=== PATIENT | male | born 1935 | race Two or more races ===

== ENCOUNTER 2018-11-05 08:03 | Inpatient (IN) | payer OTHER, MEDICAID ==
[~2018-11-05] VITALS: Ht 167.6 cm; Wt 72.0 kg
[2018-11-05 08:12] VITALS: Ht 167.6 cm; Wt 72.0 kg
[2018-11-05] MEDS ORDERED: morphine 4 MG/ML VIAL IV STA (08:22)
[2018-11-05] MEDS ORDERED: ONDANSETRON 4 MG INJ IV STA (08:22)
[2018-11-05] MEDS ORDERED: METF500T9 ORAL (08:50)
[2018-11-05] MEDS ORDERED: BENA1TAB13 ORAL (08:50)
[2018-11-05] MEDS ORDERED: TAMS0.4C2 ORAL (08:50)
[2018-11-05] MEDS ORDERED: HYDROmorphONE 2 MG/ML SYG IV STA (09:23)
[2018-11-05] MEDS ORDERED: ACETAMINOPHEN 325 MG TAB PO PRN ×2 (10:30)
[2018-11-05] MEDS ORDERED: NACL 0.9% 3 ML SYG IV SCH (10:30)
[2018-11-05] MEDS ORDERED: ONDANSETRON 4 MG INJ IV PRN ×2 (10:30)
--- NOTE | 2018-11-05 12:08 | ERD ---
ER Documentation Chief Complaint Chief Complaint right ankle pain and swelling after trip and fall HPI Patient is an 83-year-old male with hypertension and diabetes who presents with right leg pain. He had a slip and fall at home this morning. He was brought in by ambulance. There is right leg pain, swelling, and deformity. He has had no treatment for pain as of yet. Upon review of old medical records this is the patient's third visit to the ER since 2007. His primary doctor is Dr. Thomas. ROS All systems reviewed and are negative except as per history of present illness. Medications Home Meds Reported Medications Metformin Hcl (Metformin Hcl ER) 500 Mg Tab.er.24h, 1 TAB ORAL DAILY 11/05/18 Tamsulosin Hcl* (Tamsulosin Hcl*) 0.4 Mg Cap.er.24h, 1 CAP ORAL DAILY 11/05/18 Benazepril-Hydrochlorothiazide (Benazepril-Hydrochlorothiazide) 20-12.5 Mg Tablet, 1 TAB ORAL DAILY 11/05/18 Allergies Allergies: Coded Allergies: Penicillins (Verified Allergy, Mild, RASH, 11/05/18) PMhx/Soc Medical and Surgical Hx: pt denies Surgical Hx History of Surgery: No Hx Neurological Disorder: No Hx Respiratory Disorders: No Hx Cardiac Disorders: Yes (htn) Hx Psychiatric Problems: No Hx Miscellaneous Medical Probl: Yes (DM, ENLARGED PROSTATE) Hx Alcohol Use: No Hx Substance Use: No Hx Tobacco Use: No Smoking Status: Never smoker FmHx Family History: No diabetes Physical Exam Vitals Vital Signs Date Temp Pulse Resp B/P (MAP) Pulse Ox O2 O2 Flow FiO2 Time Delivery Rate 11/05/18 78 16 141/78 96 Room Air 09:05 (99) 11/05/18 78 16 163/75 99 Room Air 08:40 (104) 11/05/18 98.4 94 18 194/89 98 08:12 (124) Physical Exam Const: No acute distress Head: Atraumatic Eyes: Normal Conjunctiva ENT: Normal External Ears, Nose and Mouth. Neck: Full range of motion. No meningismus. Resp: Clear to auscultation bilaterally Cardio: Regular rate and rhythm, no murmurs Abd: Soft, non tender, non distended. Normal bowel sounds Skin: No petechiae or rashes Back: No midline or flank tenderness Ext: Swelling and deformity to the right lower extremity at the mid tibia Neur: Awake and alert Psych: Normal Mood and Affect Result Diagram: 11/05/18 0834 11/05/18 0834 Results 24 hrs Laboratory Tests Test 11/05/18 08:34 White Blood Count 5.5 10^3/ul Red Blood Count 5.37 10^6/ul Hemoglobin 17.0 g/dl Hematocrit 49.4 % Mean Corpuscular Volume 92.0 fl Mean Corpuscular Hemoglobin 31.7 pg Mean Corpuscular Hemoglobin Concent 34.4 g/dl Red Cell Distribution Width 12.9 % Platelet Count 222 10^3/UL Mean Platelet Volume 10.0 fl Immature Granulocytes % 1.100 % Neutrophils % 75.7 % Lymphocytes % 15.9 % Monocytes % 5.1 % Eosinophils % 1.3 % Basophils % 0.9 % Nucleated Red Blood Cells % 0.0 /100WBC Immature Granulocytes # 0.060 10^3/ul Neutrophils # 4.2 10^3/ul Lymphocytes # 0.9 10^3/ul Monocytes # 0.3 10^3/ul Eosinophils # 0.1 10^3/ul Basophils # 0.1 10^3/ul Nucleated Red Blood Cells # 0.0 10^3/ul Prothrombin Time 13.6 Sec Prothrombin Time Ratio 1.1 INR International Normalized Ratio 1.03 Activated Partial Thromboplast Time 27.4 Sec Sodium Level 142 mmol/L Potassium Level 3.9 mmol/L Chloride Level 102 mmol/L Carbon Dioxide Level 30 mmol/L Anion Gap 10 Blood Urea Nitrogen 19 mg/dl Creatinine 0.76 mg/dl Est Glomerular Filtrat Rate mL/min mL/min Glucose Level 240 mg/dl Calcium Level 9.4 mg/dl Troponin I < 0.012 ng/ml Current Medications Medications Dose Sig/Sammie Start Time Status Last (Trade) Ordered Route PRN Stop Time Admin Dose Reason Admin Morphine 4 mg ONCE STAT 11/05/18 DC 11/05/18 Sulfate IV 08:22 08:49 (morphine) 11/05/18 08:25 Ondansetron 4 mg ONCE STAT 11/05/18 DC 11/05/18 HCl (Zofran IV 08:22 08:49 Inj) 11/05/18 08:25 1 mg ONCE STAT 11/05/18 DC 11/05/18 Hydromorphone IV 09:23 10:27 HCl 11/05/18 09:24 (Dilaudid) Procedures/MDM X-ray of the right tibia/fibula shows comminuted fracture of the tibia and fibula per radiology. Chest x-ray read by radiology. EKG read by me: Rate/Rhythm: Regular rate and rhythm at a normal rate Intervals: Normal Impression: No evidence of ischemia or arrhythmia Splint Note Type: Posterior long leg Location: Right lower extremity Indication: Comminuted tibia and fibula fracture Splint Assessment: Neurovascularly intact post splint placement with good fit. Patient is an 83-year-old male with hypertension and diabetes who presents with right leg pain. He was found to have a comminuted tibia and fibula fracture of the right lower extremity. The patient was placed in a splint. He will need to go to the operating room with Dr. Rhodes who I have spoken with. This patient will be admitted to the medical surgical floor under the care of the panel team. Departure Diagnosis: Primary Impression: Fibula fracture Encounter type: initial encounter Fibula location: proximal Fracture type: closed Fracture morphology: other fracture Laterality: right Qualified Codes: S82.831A - Other fracture of upper and lower end of right fibula, initial encounter for closed fracture Additional Impression: Tibia fracture Encounter type: initial encounter Tibia location: shaft Fracture type: closed Fracture morphology: other fracture Laterality: right Qualified Codes: S82.291A - Other fracture of shaft of right tibia, initial encounter for closed fracture Condition: KEEGAN Vivar MD Nov 05, 2018 12:08
[2018-11-05] MEDS: morphine 2 MG INJ IV PRN ×3 (12:12→21:40)
[2018-11-05] MEDS: DEXTROSE 5%-0.45% NACL 1,000 ML IV SCH (12:14)
[2018-11-05] MEDS ORDERED: hydrALAzine 20 MG INJ IV PRN (13:00)
[2018-11-05 13:11] VITALS: BP 123/68; PULSE 81; RESP 18
[2018-11-05] MEDS ORDERED: GLUCOSE GEL 15 GRAM TUBE BUCCAL PRN (13:30)
[2018-11-05] MEDS ORDERED: GLUCAGON 1 MG INJ IM PRN (13:30)
[2018-11-05] MEDS ORDERED: DEXTROSE 50% 50 ML SYRINGE IV PRN ×2 (13:30)
[2018-11-05] MEDS ORDERED: GLUCOSE GEL 15 GRAM TUBE PO PRN ×2 (13:30)
--- NOTE | 2018-11-05 13:51 | HP ---
Date/Time of Note Date/Time of Note DATE: 11/05/18 TIME: 13:50 Assessment/Plan VTE Prophylaxis Pharmacological prophylaxis: other Lines/Catheters IV Catheter Type (from Nrsg): Peripheral IV Assessment/Plan Hospital Course Patient is a male with a past medical history significant for BPH, hypertension, mild diabetes who presents to [facility] for right leg pain. Patient was diagnosed with right tib-fib fracture. Patient states that he tripped and fell over an object. Patient has no ambulatory issues, does not use a cane or walker normally. Patient feels well otherwise and has no chest pain, no shortness of breath, denies nausea, vomiting, headache, respiratory issues, left leg pain. Objective Physical exam General: Patient is laying in bed and answers questions appropriately Mentation: Patient is alert and oriented 4, Head: Normocephalic atraumatic Eyes: EOMI, pupils reactive to light Neck: Supple, nontender, midline Respiratory: Clear to auscultation bilaterally Cardiovascular: regular rate, no obvious murmurs Gastrointestinal: non-tender to palpation, bowel sounds heard. Neurological: Moves all extremities spontaneously Skin: R foot bandaged/splinted, CDI Assessment and plan Right tib-fib fracture -Orthopedic surgery consulted, Dr. Rhodes to see patient -Cardiology consulted for preop clearance, Dr. Nesbitt -N.p.o. for now -IV fluids while n.p.o. Hypertension -Treat as needed, resume home meds when able to tolerate p.o. BPH -Monitor for now, continue Flomax when able Diabetes mellitus -Insulin sliding scale for now Disposition -Await orthopedic surgery recommendations, possible surgical intervention. Result Diagram: 11/05/18 0834 11/05/18 0834 Results 24hrs Laboratory Tests Test 11/05/18 08:34 White Blood Count 5.5 Red Blood Count 5.37 Hemoglobin 17.0 Hematocrit 49.4 Mean Corpuscular Volume 92.0 Mean Corpuscular Hemoglobin 31.7 Mean Corpuscular Hemoglobin Concent 34.4 Red Cell Distribution Width 12.9 Platelet Count 222 Mean Platelet Volume 10.0 Immature Granulocytes % 1.100 H Neutrophils % 75.7 Lymphocytes % 15.9 Monocytes % 5.1 Eosinophils % 1.3 Basophils % 0.9 Nucleated Red Blood Cells % 0.0 Immature Granulocytes # 0.060 H Neutrophils # 4.2 Lymphocytes # 0.9 Monocytes # 0.3 Eosinophils # 0.1 Basophils # 0.1 Nucleated Red Blood Cells # 0.0 Prothrombin Time 13.6 Prothrombin Time Ratio 1.1 INR International Normalized Ratio 1.03 Activated Partial Thromboplast Time 27.4 Sodium Level 142 Potassium Level 3.9 Chloride Level 102 Carbon Dioxide Level 30 Anion Gap 10 Blood Urea Nitrogen 19 Creatinine 0.76 Est Glomerular Filtrat Rate mL/min Glucose Level 240 H Calcium Level 9.4 Troponin I < 0.012 HPI/ROS Admit Date/Time Admit Date/Time Nov 05, 2018 at 10:18 PMH/Family/Social Past Medical History Medications Current Medications Ondansetron HCl (Zofran Inj) 4 mg BRIDGE ORDER PRN IV NAUSEA/VOMITING; Start 11/05/18 at 10:30; Stop 11/06/18 at 10:29 Acetaminophen (Tylenol Tab) 650 mg ER BRIDGE PRN PO .MILD PAIN 1-3 OR TEMP; Start 11/05/18 at 10:30; Stop 11/06/18 at 10:29 Dextrose/Sodium Chloride 1,000 ml @ 70 mls/hr [id number] IV Last administered on 11/05/18at 12:14; Admin Dose 70 MLS/HR; Start 11/05/18 at 10:19 IV Flush (NS 3 ml) 3 ml PER PROTOCOL IV ; Start 11/05/18 at 10:30 Ondansetron HCl (Zofran Inj) 4 mg Q6H PRN IV NAUSEA/VOMITING; Start 11/05/18 at 10:30 Acetaminophen (Tylenol Tab) 650 mg Q6H PRN PO .PAIN 1-3 OR TEMP; Start 11/05/18 at 10:30 Morphine Sulfate (morphine) 2 mg Q4H PRN IV .PAIN 7-10 Last administered on 11/05/18at 12:12; Admin Dose 2 MG; Start 11/05/18 at 10:30 Pantoprazole (Protonix Iv) 40 mg DAILY@06 IV ; Start 11/06/18 at 06:00 Hydralazine HCl (Apresoline) 10 mg Q4H PRN IV sbp >160; Start 11/05/18 at 13:00 Diagnostic Test (Pha) (Accu-Chek) 1 ea 02 XX ; Start 11/06/18 at 02:00 Insulin Aspart (Novolog Insulin Pen) NOVOLOG *MILD* ALGORITHM WITH MEALS BEDTIME SC ; Start 11/05/18 at 17:55 Miscellaneous Information 1 ea NOTE XX ; Start 11/05/18 at 13:30 Glucose (Glutose) 15 gm Q15M PRN PO DECREASED GLUCOSE; Start 11/05/18 at 13:30 Glucose (Glutose) 22.5 gm Q15M PRN PO DECREASED GLUCOSE; Start 11/05/18 at 13:30 Dextrose (D50w Syringe) 25 ml Q15M PRN IV DECREASED GLUCOSE; Start 11/05/18 at 13:30 Dextrose (D50w Syringe) 50 ml Q15M PRN IV DECREASED GLUCOSE; Start 11/05/18 at 13:30 Glucagon (Glucagen) 1 mg Q15M PRN IM DECREASED GLUCOSE; Start 11/05/18 at 13:30 Glucose (Glutose) 15 gm Q15M PRN BUCCAL DECREASED GLUCOSE; Start 11/05/18 at 13:30 Coded Allergies: Penicillins (Verified Allergy, Mild, RASH, 11/05/18) Social History Smoking Status: Light tobacco smoker Exam/Review of Systems Vital Signs Vitals Vital Signs Date Temp Pulse Resp B/P (MAP) Pulse Ox O2 O2 Flow FiO2 Time Delivery Rate 11/05/18 98.2 81 18 123/68 96 Room Air 13:11 (86) VAN RIDDLE Nov 05, 2018 13:50
--- NOTE | 2018-11-05 14:26 | RADRPT ---
Echocardiogram Report Patient Name: Oscar WILLIAMSONtient ID: [id number] : 1935 (83y 2m)Study Date: 11/05/2018 10:42:26 AM Gender: MAccession #: [id number] Tech: HI Location: Ref.Physician: VAN RIDDLE Height(Cm): BSA: Weight(Kg): Quality: Technically Difficult StudyAccount #: Procedures: Echocardiographic Report: Transthoracic echocardiogram with complete 2D, M-Mode, and doppler examination. Indications: Pre-op. Measurements: 2D/M Mode Doppler Measurement Value Normal Range Measurement Value Normal Range LVIDd 2D 3.3 [ 4.2 - 5.8 ] cm AV Peak Elias 1.9 [ 100.0 - 170.0 ] cm/sec LVIDs 2D 1.2 [ 2.5 - 4.0 ] cm AV Peak PG 14.0 [ 2.0 - 9.0 ] mmHg LVPWd 2D 1.2 [ 0.6 - 1.0 ] cm LVOT Peak Elias 1.3 [ 70.0 - 110.0 ] cm/sec IVSd 2D 1.2 [ 0.6 - 1.0 ] cm LVOT Peak PG 7.0 [ 2.0 - 6.0 ] mmHg IVS/LVPW 2D 1.0 ratio MV E Peak Elias 0.4 [ 60.0 - 130.0 ] cm/sec AoR Diam 2D 2.8 [ 2.6 - 3.4 ] cm MV A Peak Elias 1.1 [ 100.0 - 120.0 ] cm/sec LA/Ao 2D 1 ratio MV E/A 0.4 [ 0.8 - 1.5 ] ratio LA Dimen 2D 3.3 [ 3.0 - 4.0 ] cm MV Decel Time 95 [ 104 - 258 ] msec Lat E` Elias 0.1 [ 10.0 - 15.0 ] cm/sec MV E/A 0.4 [ 0.8 - 1.5 ] ratio Findings: Left Ventricle: Normal left ventricular systolic function. Normal left ventricular cavity size. Mild concentric left ventricular hypertrophy. Ejection fraction is visually estimated at 65 %. Right Ventricle: Normal right ventricular size. Normal right ventricular systolic function. Left Atrium: The left atrium is normal in size. Right Atrium: The right atrium is normal in size. Mitral Valve: Normal appearance of the mitral valve. Mild mitral annular calcification. Trace mitral regurgitation. Aortic Valve: No significant aortic stenosis or insufficiency. Aortic cusps appear mildly calcified. Tricuspid Valve: Normal appearance of the tricuspid valve. Unable to obtain RVSP due to minimal presence of tricuspid regurgitation. Pulmonic Valve: Normal pulmonic valve appearance. Pericardium: Normal pericardium with no significant pericardial effusion. Aorta: Normal aortic root. IVC: Normal size and normal respiratory collapse consistent with normal right atrial pressure. Conclusions: Normal left ventricular systolic function. Normal left ventricular cavity size. Mild concentric left ventricular hypertrophy. Ejection fraction is visually estimated at 65 %. The left atrium is normal in size. Normal appearance of the mitral valve. Mild mitral annular calcification. Trace mitral regurgitation. No significant aortic stenosis or insufficiency. Aortic cusps appear mildly calcified. Normal appearance of the tricuspid valve. Unable to obtain RVSP due to minimal presence of tricuspid regurgitation. Electronically Signed By: Patricio Nesbitt 2018-11-05 14:25:30 PDT
--- NOTE | 2018-11-05 15:03 | CONS ---
Assessment/Plan Assessment/Plan Hospital Course (Demo Recall) Cardiovascular preop evaluation Tibial fracture Status post fall Hypertension Diabetes Recommendations I will start the patient on low-dose beta-dante to control his blood pressure better Diabetic management as per internal medicine No further cardiac workup would be indicated prior to the proposed orthopedic surgery. Due to his risk factors and his advanced age patient at [id number] te risk of cardiovascular event Thank you for his referral. We will continue to follow along with you NURY OSULLIVAN MD [facility] Consultation Date/Type/Reason Admit Date/Time Nov 05, 2018 at 10:18 Date of Consultation: Nov 05, 2018 Type of Consult Cardiology Reason for Consultation cv preop Requesting Provider: VAN RIDDLE Date/Time of Note DATE: 11/05/18 TIME: 14:59 Hx of Present Illness Interventional cardiology consultation note Chief complaint: Status post fall with right foot fracture Reason for consult: Cardiovascular preop evaluation History of present illness: Thank you for this referral. History was obtained from the patient discussion with the family at the bedside review of the chart. This is a pleasant 83-year gentleman with diabetes hypertension who came in after a mechanical fall. Patient apparently said that he just tripped and fell now has a leg fracture. Patient is being evaluated for surgical treatment of his leg. Patient has a letter chest pain or pressure to me. Denies a history of cardiac disorder to me. He stated he was previously able to walk up to 2-3 block with no chest pain or pressure and according to family he is normally very active. Allergies: Penicillin Medications were reviewed as per medical reconciliation sheet Family history: No history of early coronary artery disease Social history: Past medical history: Hypertension diabetes. History of gastric ulcer status post abdominal surgery and hernia repair Review of system: Patient denies all others except for above-mentioned Past Medical History Home Meds Reported Medications Metformin Hcl (Metformin Hcl ER) 500 Mg Tab.er.24h, 1 TAB ORAL DAILY 11/05/18 Tamsulosin Hcl* (Tamsulosin Hcl*) 0.4 Mg Cap.er.24h, 1 CAP ORAL DAILY 11/05/18 Benazepril-Hydrochlorothiazide (Benazepril-Hydrochlorothiazide) 20-12.5 Mg Tablet, 1 TAB ORAL DAILY 11/05/18 Medications Current Medications Ondansetron HCl (Zofran Inj) 4 mg BRIDGE ORDER PRN IV NAUSEA/VOMITING; Start 11/05/18 at 10:30; Stop 11/06/18 at 10:29 Acetaminophen (Tylenol Tab) 650 mg ER BRIDGE PRN PO .MILD PAIN 1-3 OR TEMP; Start 11/05/18 at 10:30; Stop 11/06/18 at 10:29 Dextrose/Sodium Chloride 1,000 ml @ 70 mls/hr [id number] IV Last administered on 11/05/18at 12:14; Admin Dose 70 MLS/HR; Start 11/05/18 at 10:19 IV Flush (NS 3 ml) 3 ml PER PROTOCOL IV ; Start 11/05/18 at 10:30 Ondansetron HCl (Zofran Inj) 4 mg Q6H PRN IV NAUSEA/VOMITING; Start 11/05/18 at 10:30 Acetaminophen (Tylenol Tab) 650 mg Q6H PRN PO .PAIN 1-3 OR TEMP; Start 11/05/18 at 10:30 Morphine Sulfate (morphine) 2 mg Q4H PRN IV .PAIN 7-10 Last administered on 11/05/18at 12:12; Admin Dose 2 MG; Start 11/05/18 at 10:30 Pantoprazole (Protonix Iv) 40 mg DAILY@06 IV ; Start 11/06/18 at 06:00 Hydralazine HCl (Apresoline) 10 mg Q4H PRN IV sbp >160; Start 11/05/18 at 13:00 Diagnostic Test (Pha) (Accu-Chek) 1 ea 02 XX ; Start 11/06/18 at 02:00 Insulin Aspart (Novolog Insulin Pen) NOVOLOG *MILD* ALGORITHM WITH MEALS BEDTIME SC ; Start 11/05/18 at 17:55 Miscellaneous Information 1 ea NOTE XX ; Start 11/05/18 at 13:30 Glucose (Glutose) 15 gm Q15M PRN PO DECREASED GLUCOSE; Start 11/05/18 at 13:30 Glucose (Glutose) 22.5 gm Q15M PRN PO DECREASED GLUCOSE; Start 11/05/18 at 13:30 Dextrose (D50w Syringe) 25 ml Q15M PRN IV DECREASED GLUCOSE; Start 11/05/18 at 13:30 Dextrose (D50w Syringe) 50 ml Q15M PRN IV DECREASED GLUCOSE; Start 11/05/18 at 13:30 Glucagon (Glucagen) 1 mg Q15M PRN IM DECREASED GLUCOSE; Start 11/05/18 at 13:30 Glucose (Glutose) 15 gm Q15M PRN BUCCAL DECREASED GLUCOSE; Start 11/05/18 at 13:30 Allergies: Coded Allergies: Penicillins (Verified Allergy, Mild, RASH, 11/05/18) Social History Smoking Status: Light tobacco smoker Exam/Review of Systems Vital Signs Vitals Vital Signs Date Temp Pulse Resp B/P (MAP) Pulse Ox O2 O2 Flow FiO2 Time Delivery Rate 11/05/18 98.2 81 18 123/68 96 Room Air 13:11 (86) Exam Exam General: no acute distress HEENT: NC/AT. pupils are equal. round. NECK: NO JVD. no stridor. CV: RRR. systolic murmur; no gallop or rubs. PULM: no wheezing or rhonchi. GI: SOFT, NT, ND, no rebound or guarding Extremity: trace B/L LE edema. no clubbing. neuro: awake and alert, OX3. Psych: calm and pleasant rectal: deferred : normal EKG done today at 9:00 showed normal sinus rhythm normal ECG Echocardiogram done today which was personally reviewed shows: Normal left ventricular systolic function. Normal left ventricular cavity size. Mild concentric left ventricular hypertrophy. Ejection fraction is visually estimated at 65 %. The left atrium is normal in size. Normal appearance of the mitral valve. Mild mitral annular calcification. Trace mitral regurgitation. No significant aortic stenosis or insufficiency. Aortic cusps appear mildly calcified. Normal appearance of the tricuspid valve. Unable to obtain RVSP due to minimal presence of tricuspid regurgitation. Labs Result Diagram: 11/05/18 0834 11/05/18 0834 Results 24hrs Laboratory Tests Test 11/05/18 08:34 White Blood Count 5.5 Red Blood Count 5.37 Hemoglobin 17.0 Hematocrit 49.4 Mean Corpuscular Volume 92.0 Mean Corpuscular Hemoglobin 31.7 Mean Corpuscular Hemoglobin Concent 34.4 Red Cell Distribution Width 12.9 Platelet Count 222 Mean Platelet Volume 10.0 Immature Granulocytes % 1.100 H Neutrophils % 75.7 Lymphocytes % 15.9 Monocytes % 5.1 Eosinophils % 1.3 Basophils % 0.9 Nucleated Red Blood Cells % 0.0 Immature Granulocytes # 0.060 H Neutrophils # 4.2 Lymphocytes # 0.9 Monocytes # 0.3 Eosinophils # 0.1 Basophils # 0.1 Nucleated Red Blood Cells # 0.0 Prothrombin Time 13.6 Prothrombin Time Ratio 1.1 INR International Normalized Ratio 1.03 Activated Partial Thromboplast Time 27.4 Sodium Level 142 Potassium Level 3.9 Chloride Level 102 Carbon Dioxide Level 30 Anion Gap 10 Blood Urea Nitrogen 19 Creatinine 0.76 Est Glomerular Filtrat Rate mL/min Glucose Level 240 H Calcium Level 9.4 Troponin I < 0.012 Medications Medications Current Medications Ondansetron HCl (Zofran Inj) 4 mg BRIDGE ORDER PRN IV NAUSEA/VOMITING; Start 11/05/18 at 10:30; Stop 11/06/18 at 10:29 Acetaminophen (Tylenol Tab) 650 mg ER BRIDGE PRN PO .MILD PAIN 1-3 OR TEMP; Start 11/05/18 at 10:30; Stop 11/06/18 at 10:29 Dextrose/Sodium Chloride 1,000 ml @ 70 mls/hr [id number] IV Last administered on 11/05/18at 12:14; Admin Dose 70 MLS/HR; Start 11/05/18 at 10:19 IV Flush (NS 3 ml) 3 ml PER PROTOCOL IV ; Start 11/05/18 at 10:30 Ondansetron HCl (Zofran Inj) 4 mg Q6H PRN IV NAUSEA/VOMITING; Start 11/05/18 at 10:30 Acetaminophen (Tylenol Tab) 650 mg Q6H PRN PO .PAIN 1-3 OR TEMP; Start 11/05/18 at 10:30 Morphine Sulfate (morphine) 2 mg Q4H PRN IV .PAIN 7-10 Last administered on 11/05/18at 12:12; Admin Dose 2 MG; Start 11/05/18 at 10:30 Pantoprazole (Protonix Iv) 40 mg DAILY@06 IV ; Start 11/06/18 at 06:00 Hydralazine HCl (Apresoline) 10 mg Q4H PRN IV sbp >160; Start 11/05/18 at 13:00 Diagnostic Test (Pha) (Accu-Chek) 1 ea 02 XX ; Start 11/06/18 at 02:00 Insulin Aspart (Novolog Insulin Pen) NOVOLOG *MILD* ALGORITHM WITH MEALS BEDTIME SC ; Start 11/05/18 at 17:55 Miscellaneous Information 1 ea NOTE XX ; Start 11/05/18 at 13:30 Glucose (Glutose) 15 gm Q15M PRN PO DECREASED GLUCOSE; Start 11/05/18 at 13:30 Glucose (Glutose) 22.5 gm Q15M PRN PO DECREASED GLUCOSE; Start 11/05/18 at 13:30 Dextrose (D50w Syringe) 25 ml Q15M PRN IV DECREASED GLUCOSE; Start 11/05/18 at 13:30 Dextrose (D50w Syringe) 50 ml Q15M PRN IV DECREASED GLUCOSE; Start 11/05/18 at 13:30 Glucagon (Glucagen) 1 mg Q15M PRN IM DECREASED GLUCOSE; Start 11/05/18 at 13:30 Glucose (Glutose) 15 gm Q15M PRN BUCCAL DECREASED GLUCOSE; Start 11/05/18 at 13:30 NURY OSULLIVAN MD Nov 05, 2018 15:03
[2018-11-05] MEDS: METOPROLOL 25 MG TAB PO SCH (15:30)
[2018-11-05] MEDS: INSULIN ASPART [NOVOLOG] 3 ML PEN SC SCH ×2 (17:50→20:43)
--- NOTE | 2018-11-05 18:47 | CONS ---
DATE OF ADMISSION: 11/05/2018 DATE OF CONSULTATION: 11/05/2018 ORTHOPEDIC SURGICAL CONSULTATION HISTORY OF PRESENT ILLNESS: The patient is an 83-year-old male with a known history of hypertension and diabetes who was admitted on 11/05/2018 when he came to the emergency room complaining of painful swelling and deformity involving his right leg. He obviously had a slip and fall at his home on the morning of his admission, developing this problems. Prior to this accident, he was ambulatory witho ut any difficulties. Following initial evaluation in the emergency room which revealed the presence of fracture involving the tibia and fibula of the right leg, his right leg was immobilized in a short leg posterior splint and he was admitted. PHYSICAL EXAMINATION: My examination revealed an 83-year-old male who was not in any acute distress. His right lower extremity was immobilized in a posterior splint. There was an obvious tenderness a nd swelling over the right leg. Deep palpation revealed abnormal motion involving the distal shaft o f the right tibia along with tenderness and abnormal motion in the proximal fibular shaft. There was no obvious neurovascular compromise involving the right foot. X-rays of the right leg revealed an obvious oblique fracture involving the distal shaft of the right tibia along the fracture line extending downward to the distal segment. There also was a comminuted fracture involving the proximal shaft of the right fibula. DIAGNOSTIC IMPRESSION: Fracture of the distal shaft of the right tibia with fracture line extending to the distal segment along with the comminuted fracture involving the proximal shaft of the right fi bula with a butterfly fragment. TREATMENT PLAN: Surgery for open reduction and internal fixation of the fracture of the right tibia probably in the form of intramedullary nailing. Dictated By: NILESH TELLEZ/KRISHNA Conf#: [id number] DID#: [id number]
[2018-11-05 20:45] VITALS: BP 133/63; PULSE 85; RESP 18
[2018-11-06] VITALS (27 sets, daily range): BP systolic 120–190; BP diastolic 63–108; PULSE 68–92; RESP 10–28
[2018-11-06] MEDS: DEXTROSE 5%-0.45% NACL 1,000 ML IV SCH ×2 (00:37→13:14)
[2018-11-06] MEDS: ACCU-CHEK XX SCH (01:36)
[2018-11-06] MEDS: PANTOPRAZOLE 40 MG INJ IV SCH (05:38)
--- NOTE | 2018-11-06 08:24 | CONS ---
Consult Date/Type/Reason Admit Date/Time Nov 05, 2018 at 10:18 Initial Consult Date 11/05/18 Type of Consultation: cv Requesting Provider: VAN RIDDLE Date/Time of Note DATE: 11/06/18 TIME: 08:22 Subjective Interventional cardiology follow-up progress note Subjective: Case discussed with staff Patient with no chest pain or pressure patient with no shortness of breath or palpitation Is still complaining of foot pain and is awaiting surgery Objective: General: no acute distress HEENT: NC/AT. pupils are equal. round. NECK: NO JVD. no stridor. CV: RRR. systolic murmur; no gallop or rubs. PULM: no wheezing or rhonchi. GI: SOFT, NT, ND, no rebound or guarding Extremity: trace B/L LE edema. no clubbing. Right leg deformity noted in dressing neuro: awake and alert, OX3. Psych: calm and pleasant rectal: deferred : normal EKG done today at 9:00 showed normal sinus rhythm normal ECG Echocardiogram done today which was personally reviewed shows: Normal left ventricular systolic function. Normal left ventricular cavity size. Mild concentric left ventricular hypertrophy. Ejection fraction is visually estimated at 65 %. The left atrium is normal in size. Normal appearance of the mitral valve. Mild mitral annular calcification. Trace mitral regurgitation. No significant aortic stenosis or insufficiency. Aortic cusps appear mildly calcified. Normal appearance of the tricuspid valve. Unable to obtain RVSP due to minimal presence of tricuspid regurgitation. Objective Vitals Vital Signs Date Temp Pulse Resp B/P (MAP) Pulse Ox O2 O2 Flow FiO2 Time Delivery Rate 11/06/18 98.9 86 20 137/66 93 02:45 (89) 11/05/18 Room Air 13:11 Intake and Output 11/05/18 11/05/18 11/06/18 1515:00 23:00 07:00 IntakeIntake Total 750 ml BalanceBalance 750 ml Results/Medications Result Diagram: 11/06/18 0504 11/06/18 0504 Results 24 hrs Laboratory Tests Test 11/05/18 08:34 11/05/18 17:49 11/05/18 20:42 11/06/18 05:04 White Blood Count 5.5 7.4 # Red Blood Count 5.37 4.83 Hemoglobin 17.0 15.2 Hematocrit 49.4 44.3 Mean Corpuscular 92.0 91.7 Volume Mean Corpuscular 31.7 31.5 Hemoglobin Mean Corpuscular 34.4 34.3 Hemoglobin Concent Red Cell 12.9 12.9 Distribution Width Platelet Count 222 216 Mean Platelet Volume 10.0 10.1 Immature 1.100 H 0.400 Granulocytes % Neutrophils % 75.7 73.0 Lymphocytes % 15.9 13.3 L Monocytes % 5.1 11.5 H Eosinophils % 1.3 1.1 Basophils % 0.9 0.7 Nucleated Red Blood 0.0 0.0 Cells % Immature 0.060 H 0.030 Granulocytes # Neutrophils # 4.2 5.4 Lymphocytes # 0.9 1.0 Monocytes # 0.3 0.9 Eosinophils # 0.1 0.1 Basophils # 0.1 0.1 Nucleated Red Blood 0.0 0.0 Cells # Prothrombin Time 13.6 Prothrombin Time 1.1 Ratio INR International 1.03 Normalized Ratio Activated 27.4 Partial Thromboplast Time Sodium Level 142 142 Potassium Level 3.9 4.0 Chloride Level 102 106 Carbon Dioxide Level 30 28 Anion Gap 10 8 Blood Urea Nitrogen 19 17 Creatinine 0.76 0.75 Est Glomerular Filtrat Rate mL/min Glucose Level 240 H 136 # Calcium Level 9.4 9.0 Troponin I < 0.012 Bedside Glucose 148 125 Hemoglobin A1c 6.2 H Magnesium Level 2.1 Total Bilirubin 3.3 H Direct Bilirubin 0.00 Indirect Bilirubin 3.3 H Aspartate Amino 275 H Transf (AST/SGOT) Alanine 210 H Aminotransferase (AL T/SGPT) Alkaline Phosphatase 115 Total Protein 6.3 Albumin 3.5 Globulin 2.80 Albumin/Globulin 1.25 Ratio Home Meds Reported Medications Metformin Hcl (Metformin Hcl ER) 500 Mg Tab.er.24h, 1 TAB ORAL DAILY 11/05/18 Tamsulosin Hcl* (Tamsulosin Hcl*) 0.4 Mg Cap.er.24h, 1 CAP ORAL DAILY 11/05/18 Benazepril-Hydrochlorothiazide (Benazepril-Hydrochlorothiazide) 20-12.5 Mg Tablet, 1 TAB ORAL DAILY 11/05/18 Medications Current Medications Dextrose/Sodium Chloride 1,000 ml @ 70 mls/hr [id number] IV Last administered on 11/05/18at 12:14; Admin Dose 70 MLS/HR; Start 11/05/18 at 10:19 IV Flush (NS 3 ml) 3 ml PER PROTOCOL IV ; Start 11/05/18 at 10:30 Ondansetron HCl (Zofran Inj) 4 mg Q6H PRN IV NAUSEA/VOMITING; Start 11/05/18 at 10:30 Acetaminophen (Tylenol Tab) 650 mg Q6H PRN PO .PAIN 1-3 OR TEMP; Start 11/05/18 at 10:30 Morphine Sulfate (morphine) 2 mg Q4H PRN IV .PAIN 7-10 Last administered on 11/05/18at 21:40; Admin Dose 2 MG; Start 11/05/18 at 10:30 Pantoprazole (Protonix Iv) 40 mg DAILY@06 IV Last administered on 11/06/18at 05:38; Admin Dose 40 MG; Start 11/06/18 at 06:00 Hydralazine HCl (Apresoline) 10 mg Q4H PRN IV sbp >160; Start 11/05/18 at 13:00 Diagnostic Test (Pha) (Accu-Chek) 1 ea 02 XX ; Start 11/06/18 at 02:00 Insulin Aspart (Novolog Insulin Pen) NOVOLOG *MILD* ALGORITHM WITH MEALS BEDTIME SC Last administered on 11/05/18at 17:50; Admin Dose 1 UNIT; Start 11/05/18 at 17:55 Miscellaneous Information 1 ea NOTE XX ; Start 11/05/18 at 13:30 Glucose (Glutose) 15 gm Q15M PRN PO DECREASED GLUCOSE; Start 11/05/18 at 13:30 Glucose (Glutose) 22.5 gm Q15M PRN PO DECREASED GLUCOSE; Start 11/05/18 at 13:30 Dextrose (D50w Syringe) 25 ml Q15M PRN IV DECREASED GLUCOSE; Start 11/05/18 at 13:30 Dextrose (D50w Syringe) 50 ml Q15M PRN IV DECREASED GLUCOSE; Start 11/05/18 at 13:30 Glucagon (Glucagen) 1 mg Q15M PRN IM DECREASED GLUCOSE; Start 11/05/18 at 13:30 Glucose (Glutose) 15 gm Q15M PRN BUCCAL DECREASED GLUCOSE; Start 11/05/18 at 13:30 Metoprolol Tartrate (Lopressor) 25 mg BID PO ; Start 11/05/18 at 15:30 Assessment/Plan Hospital Course (Demo Recall) Cardiovascular preop evaluation Tibial fracture Status post fall Hypertension Diabetes Recommendations Continue the patient on low-dose beta-dante to control his blood pressure better, even if the patient is n.p.o. for surgery Diabetic management as per internal medicine No further cardiac workup would be indicated prior to the proposed orthopedic surgery. Due to his risk factors and his advanced age patient at [id number] risk of cardiovascular event Thank you for his referral. We will continue to follow along with you NURY OSULLIVAN MD [facility] NURY OSULLIVAN MD Nov 06, 2018 08:24
[2018-11-06] MEDS: METOPROLOL 25 MG TAB PO SCH ×2 (09:00→21:00)
[2018-11-06] MEDS: INSULIN ASPART [NOVOLOG] 3 ML PEN SC SCH ×4 (09:35→21:00)
[2018-11-06] MEDS: morphine 2 MG INJ IV PRN ×2 (09:39→13:07)
--- NOTE | 2018-11-06 11:13 | PREAC ---
Date/Time of Note Date/Time of Note DATE: 11/06/18 TIME: 11:10 Anesthesia Eval and Record Evaluation Time Pre-Procedure Interview DATE: 11/06/18 TIME: 11:10 Age 83 Sex male NPO: 8 hrs Preoperative diagnosis right tibia fx s/p fall Planned procedure right tibia ORIF, IM nailing Past Medical History Past Medical History: Includes Cardio: HTN, Other (Dr Nesbitt cards stated no further testing needed before surgery) Endo: Diabetes (hgba1C 6.2%) Renal: BPH Surgery & Anesthesia Issues No known issue Meds Anticoagulation: No Beta Becca within 24 hr: No Reason Beta Becca not given: Pt. not on B-Becca Reported Medications Metformin Hcl (Metformin Hcl ER) 500 Mg Tab.er.24h, 1 TAB ORAL DAILY 11/05/18 Tamsulosin Hcl* (Tamsulosin Hcl*) 0.4 Mg Cap.er.24h, 1 CAP ORAL DAILY 11/05/18 Benazepril-Hydrochlorothiazide (Benazepril-Hydrochlorothiazide) 20-12.5 Mg Tablet, 1 TAB ORAL DAILY 11/05/18 Current Medications Dextrose/Sodium Chloride 1,000 ml @ 70 mls/hr [id number] IV Last administered on 11/05/18at 12:14; Admin Dose 70 MLS/HR; Start 11/05/18 at 10:19 IV Flush (NS 3 ml) 3 ml PER PROTOCOL IV ; Start 11/05/18 at 10:30 Ondansetron HCl (Zofran Inj) 4 mg Q6H PRN IV NAUSEA/VOMITING; Start 11/05/18 at 10:30 Acetaminophen (Tylenol Tab) 650 mg Q6H PRN PO .PAIN 1-3 OR TEMP; Start 11/05/18 at 10:30 Morphine Sulfate (morphine) 2 mg Q4H PRN IV .PAIN 7-10 Last administered on 11/06/18at 09:39; Admin Dose 2 MG; Start 11/05/18 at 10:30 Pantoprazole (Protonix Iv) 40 mg DAILY@06 IV Last administered on 11/06/18at 05:38; Admin Dose 40 MG; Start 11/06/18 at 06:00 Hydralazine HCl (Apresoline) 10 mg Q4H PRN IV sbp >160; Start 11/05/18 at 13:00 Diagnostic Test (Pha) (Accu-Chek) 1 ea 02 XX ; Start 11/06/18 at 02:00 Insulin Aspart (Novolog Insulin Pen) NOVOLOG *MILD* ALGORITHM WITH MEALS BEDTIME SC Last administered on 11/05/18at 17:50; Admin Dose 1 UNIT; Start 11/05/18 at 17:55 Miscellaneous Information 1 ea NOTE XX ; Start 11/05/18 at 13:30 Glucose (Glutose) 15 gm Q15M PRN PO DECREASED GLUCOSE; Start 11/05/18 at 13:30 Glucose (Glutose) 22.5 gm Q15M PRN PO DECREASED GLUCOSE; Start 11/05/18 at 13:30 Dextrose (D50w Syringe) 25 ml Q15M PRN IV DECREASED GLUCOSE; Start 11/05/18 at 13:30 Dextrose (D50w Syringe) 50 ml Q15M PRN IV DECREASED GLUCOSE; Start 11/05/18 at 13:30 Glucagon (Glucagen) 1 mg Q15M PRN IM DECREASED GLUCOSE; Start 11/05/18 at 13:30 Glucose (Glutose) 15 gm Q15M PRN BUCCAL DECREASED GLUCOSE; Start 11/05/18 at 13:30 Metoprolol Tartrate (Lopressor) 25 mg BID PO ; Start 11/05/18 at 15:30 Meds reviewed: Yes Allergies Coded Allergies: Penicillins (Verified Allergy, Mild, RASH, 11/05/18) Allergies Reviewed: Yes Labs/Studies Labs Reviewed: Reviewed by anesthesiologist Result Diagram: 11/06/18 0504 11/06/18 0504 Laboratory Tests 11/06/18 05:04 test: N/A Studies: ECG (NSR), CXR, 2D Echo (11/06/18 EF 65% no valvular disorder) Pre-procedure Exam Last vitals Vital Signs Date Temp Pulse Resp B/P (MAP) Pulse Ox O2 O2 Flow FiO2 Time Delivery Rate 11/06/18 98.0 73 20 120/63 92 Room Air 08:23 (82) Airway: Adequate mouth opening, Adequate thyromental dist Mallampati: Mallampati II Teeth: Normal (edentulous) Lung: Normal Heart: Normal ASA Physical Status ASA physical status: 3 Emergency: E Planned Anesthetic General/MAC: LMA Neuraxial: Spinal Nerve block: Femoral (right) Planned Pain Management Sub-arachniod narcotics, Single shot nerve block, Parenteral pain med, Local by surgeon Pre-operative Attestations Prior to commencing anesthesia and surgery, the patient was re-evaluated, there was verification of: *The patient's identity *The results of appropriate recent lab work and preoperative vital signs *The above evaluation not changing prior to induction *Anesthetic plan, risk benefits, alternative and complications discussed with patient/family; questions answered; patient/family understands, accepts and wishes to proceed. ESA LAU Nov 06, 2018 11:13
--- NOTE | 2018-11-06 15:27 | PN ---
Date/Time of Note Date/Time of Note DATE: 11/06/18 TIME: 15:24 Objective Vitals Vital Signs Date Temp Pulse Resp B/P (MAP) Pulse Ox O2 O2 Flow FiO2 Time Delivery Rate 11/06/18 98.0 73 20 120/63 92 Room Air 08:23 (82) Intake and Output 11/05/18 11/05/18 11/06/18 1515:00 23:00 07:00 IntakeIntake Total 750 ml BalanceBalance 750 ml Results Result Diagram: 11/06/18 0504 11/06/18 0504 Medications Medications Current Medications Dextrose/Sodium Chloride 1,000 ml @ 70 mls/hr [id number] IV Last administered on 11/06/18at 13:14; Admin Dose 70 MLS/HR; Start 11/05/18 at 10:19 IV Flush (NS 3 ml) 3 ml PER PROTOCOL IV ; Start 11/05/18 at 10:30 Ondansetron HCl (Zofran Inj) 4 mg Q6H PRN IV NAUSEA/VOMITING; Start 11/05/18 at 10:30 Acetaminophen (Tylenol Tab) 650 mg Q6H PRN PO .PAIN 1-3 OR TEMP; Start 11/05/18 at 10:30 Morphine Sulfate (morphine) 2 mg Q4H PRN IV .PAIN 7-10 Last administered on 11/06/18at 13:07; Admin Dose 2 MG; Start 11/05/18 at 10:30 Pantoprazole (Protonix Iv) 40 mg DAILY@06 IV Last administered on 11/06/18at 05:38; Admin Dose 40 MG; Start 11/06/18 at 06:00 Hydralazine HCl (Apresoline) 10 mg Q4H PRN IV sbp >160; Start 11/05/18 at 13:00 Diagnostic Test (Pha) (Accu-Chek) 1 ea 02 XX ; Start 11/06/18 at 02:00 Insulin Aspart (Novolog Insulin Pen) NOVOLOG *MILD* ALGORITHM WITH MEALS BE DTIME SC Last administered on 11/05/18at 17:50; Admin Dose 1 UNIT; Start 11/05/18 at 17:55 Miscellaneous Information 1 ea NOTE XX ; Start 11/05/18 at 13:30 Glucose (Glutose) 15 gm Q15M PRN PO DECREASED GLUCOSE; Start 11/05/18 at 13:30 Glucose (Glutose) 22.5 gm Q15M PRN PO DECREASED GLUCOSE; Start 11/05/18 at 13:30 Dextrose (D50w Syringe) 25 ml Q15M PRN IV DECREASED GLUCOSE; Start 11/05/18 at 13:30 Dextrose (D50w Syringe) 50 ml Q15M PRN IV DECREASED GLUCOSE; Start 11/05/18 at 13:30 Glucagon (Glucagen) 1 mg Q15M PRN IM DECREASED GLUCOSE; Start 11/05/18 at 13:30 Glucose (Glutose) 15 gm Q15M PRN BUCCAL DECREASED GLUCOSE; Start 11/05/18 at 13:30 Metoprolol Tartrate (Lopressor) 25 mg BID PO ; Start 11/05/18 at 15:30 VTE Prophylaxis Risk score (from Ns)>0 risk: 10 SCD applied (from [facility]): Yes Lines/Catheters IV Catheter Type: Bolanos in Place: Yes Cont'd bolanos catheter reason: terminal illness/intractable pain Assessment/Plan Hospital Course Subjective No acute issues, awaiting surgery Objective Physical exam General: Patient is laying in bed and answers questions appropriately Mentation: Patient is alert and oriented 4, Head: Normocephalic atraumatic Eyes: EOMI, pupils reactive to light Neck: Supple, nontender, midline Respiratory: Clear to auscultation bilaterally Cardiovascular: regular rate, no obvious murmurs Gastrointestinal: non-tender to palpation, bowel sounds heard. Neurological: Moves all extremities spontaneously Skin: R foot bandaged/splinted, CDI Assessment and plan Right tib-fib fracture -Orthopedic surgery consulted, Dr. Rhodes to see patient -Cardiology consulted for preop clearance, Dr. Nesbitt -N.p.o. for now -IV fluids while n.p.o. Hypertension -Treat as needed, resume home meds when able to tolerate p.o. BPH -Monitor for now, continue Flomax when able Diabetes mellitus -Insulin sliding scale for now Disposition -Await orthopedic surgery recommendations, possible surgical intervention. VAN RIDDLE Nov 06, 2018 15:27
[2018-11-06] MEDS ORDERED: DEXAMETHASONE 4 MG/ML 5 ML INJ ONE (18:20)
[2018-11-06] MEDS ORDERED: ONDANSETRON 4 MG INJ ONE (18:20)
[2018-11-06] MEDS ORDERED: PROPOFOL 20 ML ONE (18:20)
[2018-11-06] MEDS ORDERED: CEFAZOLIN 1 GM INJ ONE (18:20)
[2018-11-06] MEDS ORDERED: MIDAZOLAM 1 MG/ML 2 ML INJ ONE (18:20)
[2018-11-06] MEDS ORDERED: FENTAnyl 50 MCG/ML VIAL ONE ×2 (18:20→19:26)
[2018-11-06] MEDS ORDERED: GLYCOPYRROLATE 0.4 MG INJ ONE (18:20)
[2018-11-06] MEDS ORDERED: NEOSTIGMINE 3 MG/3 ML SYRINGE ONE (18:20)
[2018-11-06] MEDS ORDERED: ROCURONIUM 50 MG INJ ONE (18:20)
[2018-11-06] MEDS ORDERED: ROPIVACAINE 0.5 % 30 ML VIAL ONE (18:23)
[2018-11-06] MEDS ORDERED: LABETALOL HCL 20MG INJ ONE (18:49)
[2018-11-06] MEDS ORDERED: EPHEDrine SULFATE 50 MG/5 ML SYG IV PRN (19:30)
[2018-11-06] MEDS ORDERED: OXYCODONE/ACETAMINOPHEN (5/325) TAB PO PRN ×2 (19:30)
[2018-11-06] MEDS ORDERED: MEPERIDINE 25 MG INJ IV PRN (19:30)
[2018-11-06] MEDS ORDERED: MIDAZOLAM 1 MG/ML 2 ML INJ IV PRN (19:30)
[2018-11-06] MEDS ORDERED: TRIMETHOBENZAMIDE 100 MG/ML VIAL IM PRN (19:30)
[2018-11-06] MEDS ORDERED: HYDROmorphONE 1 MG/5 ML IV SYRINGE IV PRN ×3 (19:30)
[2018-11-06] MEDS ORDERED: DIPHENHYDRAMINE 50 MG INJ IV PRN (19:30)
[2018-11-06] MEDS ORDERED: ONDANSETRON 4 MG INJ IV PRN (19:30)
[2018-11-06] MEDS ORDERED: ALBUTEROL 0.083% (NEB) 2.5 MG/3 ML AMP HHN PRN (19:30)
[2018-11-06] MEDS ORDERED: FENTAnyl 50 MCG/ML VIAL IV PRN ×3 (19:30)
[2018-11-06] MEDS ORDERED: IPRATROPIUM (NEB) 0.5 MG/2.5 ML AMP HHN PRN (19:30)
[2018-11-06] MEDS ORDERED: hydrALAzine 20 MG INJ IV PRN (19:30)
[2018-11-06] MEDS ORDERED: SUGAMMADEX SODIUM 200 MG/2 ML VIAL IV ONE (20:41)
[2018-11-06] MEDS ORDERED: CEFAZOLIN 1 GM/50 ML (PMX) 50 ML IVPB SCH ×2 (21:00→22:00)
[2018-11-06] MEDS ORDERED: NACL 0.9% 3 ML SYG IV SCH (21:00)
[2018-11-06] MEDS ORDERED: HYDROCODONE/APAP (5/325) TAB PO PRN (21:00)
--- NOTE | 2018-11-06 21:04 | PAC ---
Date/Time of Note Date/Time of Note DATE: 11/06/18 TIME: 21:03 Post-Anesthesia Notes Post-Anesthesia Note Last documented vital signs Vital Signs Date Temp Pulse Resp B/P (MAP) Pulse Ox O2 O2 Flow FiO2 Time Delivery Rate 11/06/18 98.1 79 20 125/67 95 21:03 (86) 11/06/18 Room Air 08:23 Activity: WNL Respiratory function: WNL Cardiovascular function: WNL Mental status: Baseline Pain reasonably controlled: Yes Hydration appropriate: Yes Nausea/Vomiting absent: Yes Wilian Amaral M.D. Nov 06, 2018 21:04
[2018-11-06] MEDS: LABETALOL HCL 20MG INJ IV PRN ×2 (21:17→21:29)
--- NOTE | 2018-11-06 21:37 | HPN ---
Date/Time of Note Date/Time of Note DATE: 11/06/18 TIME: 21:36 Interval H&P Admission Note Pt. seen H&P reviewed: No system changes KVNG MIMS MD Nov 06, 2018 21:37
--- NOTE | 2018-11-06 21:45 | SIPON ---
Date/Time of Note Date/Time of Note DATE: 11/06/18 TIME: 21:37 Operative Report Preoperative Diagnosis fracture of tibia and fibula of Rt. leg Postoperative Diagnosis same Operation/Procedure Performed O.R.I.F. of Rt. tibia by intramedullary nailing Surgeon see signature line assistant pastry chef none Anesthesia: general Estimated blood loss: 10 - 50 ml's Transfusion Required none Specimen none Grafts/Implants none Complications none KVNG MIMS MD Nov 06, 2018 21:45
--- NOTE | 2018-11-06 22:52 | OPR ---
DATE OF OPERATION: 11/06/2018 PREOPERATIVE DIAGNOSIS: Fracture of the shaft of the tibia and fibula of the right leg. POSTOPERATIVE DIAGNOSIS: Fracture of the shaft of the tibia and fibula of the right leg. PROCEDURE PERFORMED: Open reduction and internal fixation of the fracture of the right tibia by intr amedullary nailing. ANESTHESIA: General anesthesia. SURGEON: Nilesh Mims MD PROCEDURE AND FINDINGS: Under anesthesia, the patient was placed in supine position upon the operati ng table. Usual prep and drape was done exposing the right leg. A tourniquet was placed over the pr oximal portion of the right thigh and was inflated up to 300 mmHg prior to the procedure. The proxim al end of the tibia was approached through the small anterior longitudinal incision over the proximal tibia. By blunt and sharp dissection, the proximal tibia was exposed using curved peñaloza. The proxima l portion of the intramedullary canal was entered, and then with the help of the curve peñaloza, the guide wire was introduced into the proximal and intramedullary space of the tibia and then was pushed downw sherie and threaded into the distal segment with some effort. After proper positioning, the length was measured and it was my estimation that proper length of the intramedullary nail should be [address] reaming up to the 12.5 mm, the intramedullary linda in the size of 315 x 11.5 mm was inserted into the intramedullary space. After proper adjustment and rotational control, the 1 proximal locking scr ew and 1 distal locking screw was inserted for further stabilization. After confirming acceptable al ignment of the fracture and proper position of the fixation device and after irrigation and hemostasi s, closure of the incision was carried out using 0 Vicryl for muscle and fascia and 2-0 Vicryl for ram bcutaneous tissues. Final skin closure was carried out with skin jaquelin. The usual sterile pressur e dressings were applied. The patient tolerated the entire procedure very well and was sent to the recovery room in good condit ion. Dictated By: NILESH MIMS MD IK/NTS Conf#: [id number] DID#: [id number]
[2018-11-06] MEDS: SOD CHLORIDE 0.9% 1,000 ML IV SCH (23:13)
[2018-11-07] VITALS (8 sets, daily range): BP systolic 142–157; BP diastolic 63–77; PULSE 74–79; RESP 16–20
[2018-11-07] MEDS: ACCU-CHEK XX SCH (01:42)
[2018-11-07] MEDS: SOD CHLORIDE 0.9% 1,000 ML IV SCH ×2 (01:45→06:06)
[2018-11-07] MEDS: PANTOPRAZOLE 40 MG INJ IV SCH (05:18)
[2018-11-07] MEDS: CEFAZOLIN 1 GM/50 ML (PMX) 50 ML IVPB SCH ×3 (05:19→23:05)
[2018-11-07] MEDS: morphine 4 MG/ML VIAL IV PRN ×4 (07:53→21:18)
--- NOTE | 2018-11-07 08:38 | CONS ---
Consult Date/Type/Reason Admit Date/Time Nov 05, 2018 at 10:18 Initial Consult Date 11/05/18 Type of Consultation: cv Requesting Provider: VAN RIDDLE Date/Time of Note DATE: 11/07/18 TIME: 08:37 Subjective Interventional cardiology follow-up progress note Subjective: Case discussed with staff and Patient with no chest pain or pressure patient with no shortness of breath or palpitation s/p leg surgery 11/06 Is still complaining of R leg pain Objective: General: no acute distress HEENT: NC/AT. pupils are equal. round. NECK: NO JVD. no stridor. CV: RRR. systolic murmur; no gallop or rubs. PULM: no wheezing or rhonchi. GI: SOFT, NT, ND, no rebound or guarding Extremity: trace B/L LE edema. no clubbing. Right leg deformity noted in dr watts neuro: awake and alert, OX3. Psych: calm and pleasant rectal: deferred : normal EKG done today at 9:00 showed normal sinus rhythm normal ECG Echocardiogram done today which was personally reviewed shows: Normal left ventricular systolic function. Normal left ventricular cavity size. Mild concentric left ventricular hypertrophy. Ejection fraction is visually estimated at 65 %. The left atrium is normal in size. Normal appearance of the mitral valve. Mild mitral annular calcification. Trace mitral regurgitation. No significant aortic stenosis or insufficiency. Aortic cusps appear mildly calcified. Normal appearance of the tricuspid valve. Unable to obtain RVSP due to minimal presence of tricuspid regurgitation. Objective Vitals Vital Signs Date Temp Pulse Resp B/P (MAP) Pulse Ox O2 O2 Flow FiO2 Time Delivery Rate 11/07/18 76 16 142/63 95 Nasal 02:45 (89) Cannula 11/06/18 98.1 23:21 11/06/18 3.0 22:52 Intake and Output 11/06/18 11/06/18 11/07/18 1515:00 23:00 07:00 IntakeIntake Total 1000 ml 2000 ml 1000 ml OutputOutput Total 700 ml 670 ml 1750 ml BalanceBalance 300 ml 1330 ml -750 ml Results/Medications Result Diagram: 11/07/18 0450 11/07/18 0450 Results 24 hrs Laboratory Tests Test 11/06/18 09:34 11/06/18 13:13 11/06/18 20:59 11/06/18 22:02 Bedside Glucose 126 126 113 White Blood Count 9.8 # Red Blood Count 5.12 Hemoglobin 15.7 Hematocrit 46.9 Mean Corpuscular 91.6 Volume Mean Corpuscular 30.7 Hemoglobin Mean Corpuscular 33.5 Hemoglobin Concent Red Cell 13.2 Distribution Width Platelet Count 202 Mean Platelet Volume 9.5 Immature 0.700 H Granulocytes % Neutrophils % 86.3 H Lymphocytes % 5.7 L Monocytes % 5.9 Eosinophils % 0.9 Basophils % 0.5 Nucleated Red Blood 0.0 Cells % Immature 0.070 H Granulocytes # Neutrophils # 8.5 H Lymphocytes # 0.6 L Monocytes # 0.6 Eosinophils # 0.1 Basophils # 0.1 Nucleated Red Blood 0.0 Cells # Sodium Level 140 Potassium Level 4.3 Chloride Level 106 Carbon Dioxide Level 24 Anion Gap 10 Blood Urea Nitrogen 11 Creatinine 0.61 Est Glomerular Filtrat Rate mL/min Glucose Level 150 Calcium Level 8.5 Test 11/07/18 04:50 White Blood Count 9.4 Red Blood Count 4.93 Hemoglobin 15.3 Hematocrit 45.7 Mean Corpuscular 92.7 Volume Mean Corpuscular 31.0 Hemoglobin Mean Corpuscular 33.5 Hemoglobin Concent Red Cell 13.0 Distribution Width Platelet Count 201 Mean Platelet Volume 10.4 Immature 0.400 Granulocytes % Neutrophils % 90.9 H Lymphocytes % 3.6 L Monocytes % 4.7 Eosinophils % 0.0 Basophils % 0.4 Nucleated Red Blood 0.0 Cells % Immature 0.040 H Granulocytes # Neutrophils # 8.5 H Lymphocytes # 0.3 L Monocytes # 0.4 Eosinophils # 0.0 Basophils # 0.0 Nucleated Red Blood 0.0 Cells # Sodium Level 139 Potassium Level 3.9 Chloride Level 103 Carbon Dioxide Level 25 Anion Gap 11 Blood Urea Nitrogen 12 Creatinine 0.63 Est Glomerular Filtrat Rate mL/min Glucose Level 146 Calcium Level 8.9 Phosphorus Level 3.6 Magnesium Level 1.6 L Home Meds Reported Medications Metformin Hcl (Metformin Hcl ER) 500 Mg Tab.er.24h, 1 TAB ORAL DAILY 11/05/18 Tamsulosin Hcl* (Tamsulosin Hcl*) 0.4 Mg Cap.er.24h, 1 CAP ORAL DAILY 11/05/18 Benazepril-Hydrochlorothiazide (Benazepril-Hydrochlorothiazide) 20-12.5 Mg Tablet, 1 TAB ORAL DAILY 11/05/18 Medications Current Medications Dextrose/Sodium Chloride 1,000 ml @ 70 mls/hr [id number] IV Last administered on 11/06/18at 13:14; Admin Dose 70 MLS/HR; Start 11/05/18 at 10:19; Status Hold IV Flush (NS 3 ml) 3 ml PER PROTOCOL IV ; Start 11/05/18 at 10:30 Ondansetron HCl (Zofran Inj) 4 mg Q6H PRN IV NAUSEA/VOMITING; Start 11/05/18 at 10:30 Acetaminophen (Tylenol Tab) 650 mg Q6H PRN PO .PAIN 1-3 OR TEMP; Start 11/05/18 at 10:30 Morphine Sulfate (morphine) 2 mg Q4H PRN IV .PAIN 7-10 Last administered on 11/06/18at 13:07; Admin Dose 2 MG; Start 11/05/18 at 10:30 Pantoprazole (Protonix Iv) 40 mg DAILY@06 IV Last administered on 11/07/18at 05:18; Admin Dose 40 MG; Start 11/06/18 at 06:00 Hydralazine HCl (Apresoline) 10 mg Q4H PRN IV sbp >160; Start 11/05/18 at 13:00 Diagnostic Test (Pha) (Accu-Chek) 1 ea 02 XX ; Start 11/06/18 at 02:00 Insulin Aspart (Novolog Insulin Pen) NOVOLOG *MILD* ALGORITHM WITH MEALS BEDTIME SC Last administered on 11/05/18at 17:50; Admin Dose 1 UNIT; Start 11/05/18 at 17:55 Miscellaneous Information 1 ea NOTE XX ; Start 11/05/18 at 13:30 Glucose (Glutose) 15 gm Q15M PRN PO DECREASED GLUCOSE; Start 11/05/18 at 13:30 Glucose (Glutose) 22.5 gm Q15M PRN PO DECREASED GLUCOSE; Start 11/05/18 at 13:30 Dextrose (D50w Syringe) 25 ml Q15M PRN IV DECREASED GLUCOSE; Start 11/05/18 at 13:30 Dextrose (D50w Syringe) 50 ml Q15M PRN IV DECREASED GLUCOSE; Start 11/05/18 at 13:30 Glucagon (Glucagen) 1 mg Q15M PRN IM DECREASED GLUCOSE; Start 11/05/18 at 13:30 Glucose (Glutose) 15 gm Q15M PRN BUCCAL DECREASED GLUCOSE; Start 11/05/18 at 13:30 Metoprolol Tartrate (Lopressor) 25 mg BID PO ; Start 11/05/18 at 15:30 IV Flush (NS 3 ml) 3 ml PER PROTOCOL IV ; Start 11/06/18 at 21:00 Sodium Chloride 1,000 ml @ 100 mls/hr Q10H IV Last administered on 11/07/18at 01:45; Admin Dose 100 MLS/HR; Start 11/06/18 at 20:56 Enoxaparin Sodium (Lovenox) 40 mg DAILY SC ; Start 11/07/18 at 09:00 Morphine Sulfate (morphine) 3 mg Q3H PRN IV SEVERE PAIN LEVEL 7-10 Last administered on 11/07/18at 07:53; Admin Dose 3 MG; Start 11/06/18 at 21:00 Acetaminophen/ Hydrocodone Bitart ([place] (5/325)) 1 tab Q3H PRN PO MODERATE PAIN LEVEL 4-6; Start 11/06/18 at 21:00 Cefazolin Sodium 50 ml @ 100 mls/hr Q8 IVPB Last administered on 11/07/18at 05:19; Admin Dose 100 MLS/HR; Start 11/07/18 at 06:00; Stop 11/07/18 at 22:29 Assessment/Plan Hospital Course (Demo Recall) Cardiovascular preop evaluation Tibial fracture Status post fall Hypertension Diabetes Recommendations Continue the patient on beta-dante Diabetic management as per internal medicine post op care and DVT prophylaxis as per IM /ortho Thank you for his referral. We will continue to follow along with you NURY OSULLIVAN MD [facility] NURY OSULLIVAN MD Nov 07, 2018 08:38
[2018-11-07] MEDS: METOPROLOL 25 MG TAB PO SCH ×2 (08:52→21:35)
[2018-11-07] MEDS: ENOXAPARIN 40 MG/0.4 ML SYG SC SCH (08:53)
[2018-11-07] MEDS: INSULIN ASPART [NOVOLOG] 3 ML PEN SC SCH ×4 (08:54→21:00)
[2018-11-07] MEDS ORDERED: MAGNESIUM SULFATE 2 GM/50 ML 50 ML IVPB ONE (09:00)
--- NOTE | 2018-11-07 14:43 | PN ---
Date/Time of Note Date/Time of Note DATE: 11/07/18 TIME: 14:42 Objective Vitals Vital Signs Date Temp Pulse Resp B/P (MAP) Pulse Ox O2 O2 Flow FiO2 Time Delivery Rate 11/07/18 98.1 78 18 157/74 94 Nasal 08:29 (101) Cannula 11/06/18 3.0 22:52 Intake and Output 11/06/18 11/06/18 11/07/18 1515:00 23:00 07:00 IntakeIntake Total 1000 ml 2000 ml 1000 ml OutputOutput Total 700 ml 670 ml 1750 ml BalanceBalance 300 ml 1330 ml -750 ml Results Result Diagram: 11/07/18 0450 11/07/18 0450 Medications Medications Current Medications IV Flush (NS 3 ml) 3 ml PER PROTOCOL IV ; Start 11/05/18 at 10:30 Ondansetron HCl (Zofran Inj) 4 mg Q6H PRN IV NAUSEA/VOMITING; Start 11/05/18 at 10:30 Acetaminophen (Tylenol Tab) 650 mg Q6H PRN PO .PAIN 1-3 OR TEMP; Start 11/05/18 at 10:30 Pantoprazole (Protonix Iv) 40 mg DAILY@06 IV Last administered on 11/07/18at 05:18; Admin Dose 40 MG; Start 11/06/18 at 06:00 Hydralazine HCl (Apresoline) 10 mg Q4H PRN IV sbp >160; Start 11/05/18 at 13:00 Diagnostic Test (Pha) (Accu-Chek) 1 ea 02 XX ; Start 11/06/18 at 02:00 Insulin Aspart (Novolog Insulin Pen) NOVOLOG *MILD* ALGORITHM WITH MEALS BEDTIME SC Last administered on 11/07/18at 08:54; Admin Dose 1 UNIT; Start 11/05/18 at 17:55 Miscellaneous Information 1 ea NOTE XX ; Start 11/05/18 at 13:30 Glucose (Glutose) 15 gm Q15M PRN PO DECREASED GLUCOSE; Start 11/05/18 at 13:30 Glucose (Glutose) 22.5 gm Q15M PRN PO DECREASED GLUCOSE; Start 11/05/18 at 13:30 Dextrose (D50w Syringe) 25 ml Q15M PRN IV DECREASED GLUCOSE; Start 11/05/18 at 13:30 Dextrose (D50w Syringe) 50 ml Q15M PRN IV DECREASED GLUCOSE; Start 11/05/18 at 13:30 Glucagon (Glucagen) 1 mg Q15M PRN IM DECREASED GLUCOSE; Start 11/05/18 at 13:30 Glucose (Glutose) 15 gm Q15M PRN BUCCAL DECREASED GLUCOSE; Start 11/05/18 at 13:30 Metoprolol Tartrate (Lopressor) 25 mg BID PO Last administered on 11/07/18at 08:52; Admin Dose 25 MG; Start 11/05/18 at 15:30 IV Flush (NS 3 ml) 3 ml PER PROTOCOL IV ; Start 11/06/18 at 21:00 Enoxaparin Sodium (Lovenox) 40 mg DAILY SC Last administered on 11/07/18at 08:53; Admin Dose 40 MG; Start 11/07/18 at 09:00 Morphine Sulfate (morphine) 3 mg Q3H PRN IV SEVERE PAIN LEVEL 7-10 Last administered on 11/07/18at 11:40; Admin Dose 3 MG; Start 11/06/18 at 21:00 Acetaminophen/ Hydrocodone Bitart ([place] (5/325)) 1 tab Q3H PRN PO MODERATE PAIN LEVEL 4-6; Start 11/06/18 at 21:00 Cefazolin Sodium 50 ml @ 100 mls/hr Q8 IVPB Last administered on 11/07/18at 13:47; Admin Dose 100 MLS/HR; Start 11/07/18 at 06:00; Stop 11/07/18 at 22:29 Oxycodone/ Acetaminophen (Endocet (10/ 325)) 1 tab Q4H PRN PO MODERATE PAIN LEVEL 4-6; Start 11/07/18 at 15:00 Gabapentin (Neurontin) 300 mg TID PO ; Start 11/07/18 at 21:00 VTE Prophylaxis Risk score (from Nsg)>0 risk: 6 SCD applied (from Nsg): Yes Lines/Catheters IV Catheter Type: Henderson in Place: No Assessment/Plan Hospital Course Subjective No acute issues,s/p surgery Objective Physical exam General: Patient is laying in bed and answers questions appropriately Mentation: Patient is alert and oriented 4, Head: Normocephalic atraumatic Eyes: EOMI, pupils reactive to light Neck: Supple, nontender, midline Respiratory: Clear to auscultation bilaterally Cardiovascular: regular rate, no obvious murmurs Gastrointestinal: non-tender to palpation, bowel sounds heard. Neurological: Moves all extremities spontaneously Skin: R foot bandaged/splinted, CDI Assessment and plan Right tib-fib fracture -Orthopedic surgery consulted, Dr. Rhodes -s/p ORIF with nail on 11/06/18 -PT/OT Hypertension -Treat as needed, resume home meds BPH -Monitor for now, continue Flomax Diabetes mellitus -Insulin sliding scale for now Disposition -treat pain, family to make decision, HHPT vs SNF/[facility] VAN RIDDLE Nov 07, 2018 14:43
[2018-11-07] MEDS ORDERED: CELECOXIB 100 MG CAP PO SCH (21:00)
[2018-11-07] MEDS: GABAPENTIN 300 MG CAP PO SCH (21:18)
[2018-11-07] MEDS: OXYCODONE/ACETAMINOPHEN (10/325) TAB PO PRN (23:02)
[2018-11-08] MEDS: ACCU-CHEK XX SCH (01:58)
[2018-11-08 03:01] VITALS: BP 149/75; PULSE 78; RESP 18
[2018-11-08] MEDS: PANTOPRAZOLE (EC) 40 MG TAB PO SCH (06:22)
[2018-11-08] MEDS: morphine 4 MG/ML VIAL IV PRN (06:25)
[2018-11-08] MEDS: INSULIN ASPART [NOVOLOG] 3 ML PEN SC SCH ×4 (07:50→21:00)
[2018-11-08 07:52] VITALS: BP 130/60; PULSE 62; RESP 18
[2018-11-08] MEDS: OXYCODONE/ACETAMINOPHEN (10/325) TAB PO PRN ×4 (08:04→21:22)
[2018-11-08] MEDS: GABAPENTIN 300 MG CAP PO SCH ×3 (08:49→21:18)
[2018-11-08] MEDS: METOPROLOL 25 MG TAB PO SCH ×2 (08:50→21:18)
[2018-11-08] MEDS: ENOXAPARIN 40 MG/0.4 ML SYG SC SCH (08:51)
--- NOTE | 2018-11-08 09:12 | CONS ---
Consult Date/Type/Reason Admit Date/Time Nov 05, 2018 at 10:18 Initial Consult Date 11/05/18 Type of Consultation: cv Requesting Provider: VAN RIDDLE Date/Time of Note DATE: 11/08/18 TIME: 09:11 Subjective Interventional cardiology follow-up progress note Subjective: Case discussed with staff Patient with no chest pain or pressure patient with no shortness of breath or palpitation s/p leg surgery 11/06 LESS R leg pain Objective: General: no acute distress HEENT: NC/AT. pupils are equal. round. NECK: NO JVD. no stridor. CV: RRR. systolic murmur; no gallop or rubs. PULM: no wheezing or rhonchi. GI: SOFT, NT, ND, no rebound or guarding Extremity: trace B/L LE edema. no clubbing. Right leg deformity noted in dressing neuro: awake and alert, OX3. Psych: calm and pleasant rectal: deferred : normal EKG done today at 9:00 showed normal sinus rhythm normal ECG Echocardiogram done today which was personally reviewed shows: Normal left ventricular systolic function. Normal left ventricular cavity size. Mild concentric left ventricular hypertrophy. Ejection fraction is visually estimated at 65 %. The left atrium is normal in size. Normal appearance of the mitral valve. Mild mitral annular calcification. Trace mitral regurgitation. No significant aortic stenosis or insufficiency. Aortic cusps appear mildly calcified. Normal appearance of the tricuspid valve. Unable to obtain RVSP due to minimal presence of tricuspid regurgitation. Objective Vitals Vital Signs Date Temp Pulse Resp B/P (MAP) Pulse Ox O2 O2 Flow FiO2 Time Delivery Rate 11/08/18 98.2 62 18 130/60 93 Room Air 07:52 (83) 11/06/18 3.0 22:52 Intake and Output 11/07/18 11/07/18 11/08/18 1515:00 23:00 07:00 IntakeIntake Total 950 ml 840 ml 650 ml OutputOutput Total 1050 ml 1200 ml 800 ml BalanceBalance -100 ml -360 ml -150 ml Results/Medications Result Diagram: 11/08/18 0446 11/08/18 0446 Results 24 hrs Laboratory Tests Test 11/07/18 12:51 11/07/18 18:07 11/07/18 21:20 11/08/18 04:46 Bedside Glucose 129 135 96 White Blood Count 7.9 Red Blood Count 4.40 L Hemoglobin 14.0 Hematocrit 40.4 L Mean Corpuscular 91.8 Volume Mean Corpuscular 31.8 Hemoglobin Mean Corpuscular 34.7 Hemoglobin Concent Red Cell 13.1 Distribution Width Platelet Count 191 Mean Platelet Volume 10.3 Immature 0.500 H Granulocytes % Neutrophils % 70.8 Lymphocytes % 14.4 L Monocytes % 12.2 H Eosinophils % 1.5 Basophils % 0.6 Nucleated Red Blood 0.0 Cells % Immature 0.040 H Granulocytes # Neutrophils # 5.6 Lymphocytes # 1.1 Monocytes # 1.0 H Eosinophils # 0.1 Basophils # 0.1 Nucleated Red Blood 0.0 Cells # Sodium Level 137 Potassium Level 3.8 Chloride Level 102 Carbon Dioxide Level 29 Anion Gap 6 Blood Urea Nitrogen 20 Creatinine 0.64 Est Glomerular Filtrat Rate mL/min Glucose Level 116 Calcium Level 8.4 Phosphorus Level 2.5 Magnesium Level 2.2 Test 11/08/18 08:48 Bedside Glucose 125 Home Meds Reported Medications Metformin Hcl (Metformin Hcl ER) 500 Mg Tab.er.24h, 1 TAB ORAL DAILY 11/05/18 Tamsulosin Hcl* (Tamsulosin Hcl*) 0.4 Mg Cap.er.24h, 1 CAP ORAL DAILY 11/05/18 Benazepril-Hydrochlorothiazide (Benazepril-Hydrochlorothiazide) 20-12.5 Mg Tablet, 1 TAB ORAL DAILY 11/05/18 Medications Current Medications IV Flush (NS 3 ml) 3 ml PER PROTOCOL IV ; Start 11/05/18 at 10:30 Ondansetron HCl (Zofran Inj) 4 mg Q6H PRN IV NAUSEA/VOMITING; Start 11/05/18 at 10:30 Acetaminophen (Tylenol Tab) 650 mg Q6H PRN PO .PAIN 1-3 OR TEMP; Start 11/05/18 at 10:30 Hydralazine HCl (Apresoline) 10 mg Q4H PRN IV sbp >160; Start 11/05/18 at 13:00 Diagnostic Test (Pha) (Accu-Chek) 1 ea 02 XX ; Start 11/06/18 at 02:00 Insulin Aspart (Novolog Insulin Pen) NOVOLOG *MILD* ALGORITHM WITH MEALS BEDTIME SC Last administered on 11/07/18at 08:54; Admin Dose 1 UNIT; Start 11/05/18 at 17:55 Miscellaneous Information 1 ea NOTE XX ; Start 11/05/18 at 13:30 Glucose (Glutose) 15 gm Q15M PRN PO DECREASED GLUCOSE; Start 11/05/18 at 13:30 Glucose (Glutose) 22.5 gm Q15M PRN PO DECREASED GLUCOSE; Start 11/05/18 at 13:30 Dextrose (D50w Syringe) 25 ml Q15M PRN IV DECREASED GLUCOSE; Start 11/05/18 at 13:30 Dextrose (D50w Syringe) 50 ml Q15M PRN IV DECREASED GLUCOSE; Start 11/05/18 at 13:30 Glucagon (Glucagen) 1 mg Q15M PRN IM DECREASED GLUCOSE; Start 11/05/18 at 13:30 Glucose (Glutose) 15 gm Q15M PRN BUCCAL DECREASED GLUCOSE; Start 11/05/18 at 13:30 Metoprolol Tartrate (Lopressor) 25 mg BID PO Last administered on 11/08/18at 08:50; Admin Dose 25 MG; Start 11/05/18 at 15:30 IV Flush (NS 3 ml) 3 ml PER PROTOCOL IV ; Start 11/06/18 at 21:00 Enoxaparin Sodium (Lovenox) 40 mg DAILY SC Last administered on 11/08/18at 08:51; Admin Dose 40 MG; Start 11/07/18 at 09:00 Morphine Sulfate (morphine) 3 mg Q3H PRN IV SEVERE PAIN LEVEL 7-10 Last administered on 11/08/18at 06:25; Admin Dose 3 MG; Start 11/06/18 at 21:00 Acetaminophen/ Hydrocodone Bitart ([place] (5/325)) 1 tab Q3H PRN PO MODERATE PAIN LEVEL 4-6; Start 11/06/18 at 21:00 Oxycodone/ Acetaminophen (Endocet (10/ 325)) 1 tab Q4H PRN PO MODERATE PAIN LEVEL 4-6 Last administered on 11/08/18at 08:04; Admin Dose 1 TAB; Start 11/07/18 at 15:00 Gabapentin (Neurontin) 300 mg TID PO Last administered on 11/08/18at 08:49; Admin Dose 300 MG; Start 11/07/18 at 21:00 Pantoprazole (Protonix Tab) 40 mg DAILY@06 PO Last administered on 11/08/18at 06:22; Admin Dose 40 MG; Start 11/08/18 at 06:00 Assessment/Plan Hospital Course (Demo Recall) Cardiovascular preop evaluation Tibial fracture Status post fall Hypertension Diabetes Recommendations Continue the patient on beta-dante Diabetic management as per internal medicine post op care and DVT prophylaxis as per IM /ortho Thank you for his referral. We will continue to follow along with you NURY OSULLIVAN MD [facility] NURY OSULLIVAN MD Nov 08, 2018 09:12
--- NOTE | 2018-11-08 14:28 | PN ---
Date/Time of Note Date/Time of Note DATE: 11/08/18 TIME: 14:26 Objective Vitals Vital Signs Date Temp Pulse Resp B/P (MAP) Pulse Ox O2 O2 Flow FiO2 Time Delivery Rate 11/08/18 98.2 62 18 130/60 93 Room Air 07:52 (83) 11/06/18 3.0 22:52 Intake and Output 11/07/18 11/07/18 11/08/18 1515:00 23:00 07:00 IntakeIntake Total 950 ml 840 ml 650 ml OutputOutput Total 1050 ml 1200 ml 800 ml BalanceBalance -100 ml -360 ml -150 ml Results Result Diagram: 11/08/186 11/08/186 Medications Medications Current Medications IV Flush (NS 3 ml) 3 ml PER PROTOCOL IV ; Start 11/05/18 at 10:30 Ondansetron HCl (Zofran Inj) 4 mg Q6H PRN IV NAUSEA/VOMITING; Start 11/05/18 at 10:30 Acetaminophen (Tylenol Tab) 650 mg Q6H PRN PO .PAIN 1-3 OR TEMP; Start 11/05/18 at 10:30 Hydralazine HCl (Apresoline) 10 mg Q4H PRN IV sbp >160; Start 11/05/18 at 13:00 Diagnostic Test (Pha) (Accu-Chek) 1 ea 02 XX ; Start 11/06/18 at 02:00 Insulin Aspart (Novolog Insulin Pen) NOVOLOG *MILD* ALGORITHM WITH MEALS BEDTIME SC Last administered on 11/07/18at 08:54; Admin Dose 1 UNIT; Start 11/05/18 at 17:55 Miscellaneous Information 1 ea NOTE XX ; Start 11/05/18 at 13:30 Glucose (Glutose) 15 gm Q15M PRN PO DECREASED GLUCOSE; Start 11/05/18 at 13:30 Glucose (Glutose) 22.5 gm Q15M PRN PO DECREASED GLUCOSE; Start 11/05/18 at 13:30 Dextrose (D50w Syringe) 25 ml Q15M PRN IV DECREASED GLUCOSE; Start 11/05/18 at 13:30 Dextrose (D50w Syringe) 50 ml Q15M PRN IV DECREASED GLUCOSE; Start 11/05/18 at 13:30 Glucagon (Glucagen) 1 mg Q15M PRN IM DECREASED GLUCOSE; Start 11/05/18 at 13:30 Glucose (Glutose) 15 gm Q15M PRN BUCCAL DECREASED GLUCOSE; Start 11/05/18 at 13:30 Metoprolol Tartrate (Lopressor) 25 mg BID PO Last administered on 11/08/18at 08:50; Admin Dose 25 MG; Start 11/05/18 at 15:30 IV Flush (NS 3 ml) 3 ml PER PROTOCOL IV ; Start 11/06/18 at 21:00 Enoxaparin Sodium (Lovenox) 40 mg DAILY SC Last administered on 11/08/18at 08:51; Admin Dose 40 MG; Start 11/07/18 at 09:00 Morphine Sulfate (morphine) 3 mg Q3H PRN IV SEVERE PAIN LEVEL 7-10 Last administered on 11/08/18at 06:25; Admin Dose 3 MG; Start 11/06/18 at 21:00 Acetaminophen/ Hydrocodone Bitart ([place] (5/325)) 1 tab Q3H PRN PO MODERATE PAIN LEVEL 4-6; Start 11/06/18 at 21:00 Oxycodone/ Acetaminophen (Endocet (10/ 325)) 1 tab Q4H PRN PO MODERATE PAIN LEVEL 4-6 Last administered on 11/08/18at 12:13; Admin Dose 1 TAB; Start 11/07/18 at 15:00 Gabapentin (Neurontin) 300 mg TID PO Last administered on 11/08/18at 13:32; Admin Dose 300 MG; Start 11/07/18 at 21:00 Pantoprazole (Protonix Tab) 40 mg DAILY@06 PO Last administered on 11/08/18at 06:22; Admin Dose 40 MG; Start 11/08/18 at 06:00 VTE Prophylaxis Risk score (from Nsg)>0 risk: 11 SCD applied (from Ns): Yes Lines/Catheters IV Catheter Type: Henderson in Place: No Assessment/Plan Hospital Course Subjective No acute issues,s/p surgery Objective Physical exam General: Patient is laying in bed and answers questions appropriately Mentation: Patient is alert and oriented 4, Head: Normocephalic atraumatic Eyes: EOMI, pupils reactive to light Neck: Supple, nontender, midline Respiratory: Clear to auscultation bilaterally Cardiovascular: regular rate, no obvious murmurs Gastrointestinal: non-tender to palpation, bowel sounds heard. Neurological: Moves all extremities spontaneously Skin: R foot bandaged/splinted, CDI Assessment and plan Right tib-fib fracture -Orthopedic surgery consulted, Dr. Rhodes -s/p ORIF with nail on 11/06/18 -PT/OT Hypertension -Treat as needed, resume home meds BPH -Monitor for now, continue Flomax Diabetes mellitus -Insulin sliding scale for now Disposition -treat pain, referral for rehab versus SNF at this time, pending insurance approval VAN RIDDLE Nov 08, 2018 14:28
[2018-11-08 15:08] VITALS: BP 112/73; PULSE 68; RESP 18
[2018-11-08 20:11] VITALS: BP 124/83; PULSE 68; RESP 18
[2018-11-09] MEDS: ACCU-CHEK XX SCH (01:59)
[2018-11-09 02:15] VITALS: BP 108/67; RESP 20
[2018-11-09] MEDS: PANTOPRAZOLE (EC) 40 MG TAB PO SCH (06:43)
[2018-11-09] MEDS: OXYCODONE/ACETAMINOPHEN (10/325) TAB PO PRN ×2 (06:44→20:38)
[2018-11-09 07:32] VITALS: BP 122/63; PULSE 68; RESP 18
[2018-11-09] MEDS: INSULIN ASPART [NOVOLOG] 3 ML PEN SC SCH ×4 (07:50→20:44)
[2018-11-09] MEDS ORDERED: POLYETHYLENE GLYCOL 17 GM PACKET PO PRN (08:30)
[2018-11-09] MEDS: GABAPENTIN 300 MG CAP PO SCH ×3 (09:12→20:39)
[2018-11-09] MEDS: DOCUSATE SODIUM 100 MG CAP PO SCH ×2 (09:12→20:38)
[2018-11-09] MEDS: METOPROLOL 25 MG TAB PO SCH ×2 (09:13→20:39)
[2018-11-09] MEDS: ENOXAPARIN 40 MG/0.4 ML SYG SC SCH (09:16)
--- NOTE | 2018-11-09 13:28 | PN ---
DATE: 11/09/2018 Third postop day afebrile, comfortable with a right leg in a dressing, some residual swelling, but th ere are no signs of neurovascular compromise. Postop x-ray shows excellent alignment. Patient can b e discharged any time from ortho point. Further followup in 2 weeks as an outpatient. Dictated By: NILESH TELLEZ/NTS Conf#: [id number] DID#: [id number] CC: VAN RIDDLE MD;*EndCC*
[2018-11-09 14:25] VITALS: BP 130/68; PULSE 70; RESP 18
--- NOTE | 2018-11-09 14:41 | PN ---
Date/Time of Note Date/Time of Note DATE: 11/09/18 TIME: 14:40 Objective Vitals Vital Signs Date Temp Pulse Resp B/P (MAP) Pulse Ox O2 O2 Flow FiO2 Time Delivery Rate 11/09/18 97.8 70 18 130/68 92 Room Air 14:25 (88) 11/06/18 3.0 22:52 Intake and Output 11/08/18 11/08/18 11/09/18 1515:00 23:00 07:00 IntakeIntake Total 400 ml 600 ml BalanceBalance 400 ml 600 ml Results Result Diagram: 11/09/18 1006 11/09/18 0445 Medications Medications Current Medications IV Flush (NS 3 ml) 3 ml PER PROTOCOL IV ; Start 11/05/18 at 10:30 Ondansetron HCl (Zofran Inj) 4 mg Q6H PRN IV NAUSEA/VOMITING; Start 11/05/18 at 10:30 Acetaminophen (Tylenol Tab) 650 mg Q6H PRN PO .PAIN 1-3 OR TEMP; Start 11/05/18 at 10:30 Hydralazine HCl (Apresoline) 10 mg Q4H PRN IV sbp >160; Start 11/05/18 at 13:00 Diagnostic Test (Pha) (Accu-Chek) 1 ea 02 XX ; Start 11/06/18 at 02:00 Insulin Aspart (Novolog Insulin Pen) NOVOLOG *MILD* ALGORITHM WITH MEALS BEDTIME SC Last administered on 11/07/18at 08:54; Admin Dose 1 UNIT; Start 11/05/18 at 17:55 Miscellaneous Information 1 ea NOTE XX ; Start 11/05/18 at 13:30 Glucose (Glutose) 15 gm Q15M PRN PO DECREASED GLUCOSE; Start 11/05/18 at 13:30 Glucose (Glutose) 22.5 gm Q15M PRN PO DECREASED GLUCOSE; Start 11/05/18 at 13:30 Dextrose (D50w Syringe) 25 ml Q15M PRN IV DECREASED GLUCOSE; Start 11/05/18 at 13:30 Dextrose (D50w Syringe) 50 ml Q15M PRN IV DECREASED GLUCOSE; Start 11/05/18 at 13:30 Glucagon (Glucagen) 1 mg Q15M PRN IM DECREASED GLUCOSE; Start 11/05/18 at 13:30 Glucose (Glutose) 15 gm Q15M PRN BUCCAL DECREASED GLUCOSE; Start 11/05/18 at 13:30 Metoprolol Tartrate (Lopressor) 25 mg BID PO Last administered on 11/09/18at 09:13; Admin Dose 25 MG; Start 11/05/18 at 15:30 IV Flush (NS 3 ml) 3 ml PER PROTOCOL IV ; Start 11/06/18 at 21:00 Enoxaparin Sodium (Lovenox) 40 mg DAILY SC Last administered on 11/09/18at 09:16; Admin Dose 40 MG; Start 11/07/18 at 09:00 Morphine Sulfate (morphine) 3 mg Q3H PRN IV SEVERE PAIN LEVEL 7-10 Last administered on 11/08/18 06:25; Admin Dose 3 MG; Start 11/06/18 at 21:00 Acetaminophen/ Hydrocodone Bitart ([place] (5/325)) 1 tab Q3H PRN PO MODERATE PAIN LEVEL 4-6; Start 11/06/18 at 21:00 Oxycodone/ Acetaminophen (Endocet (10/ 325)) 1 tab Q4H PRN PO MODERATE PAIN LEVEL 4-6 Last administered on 11/09/18at 06:44; Admin Dose 1 TAB; Start 11/07/18 at 15:00 Gabapentin (Neurontin) 300 mg TID PO Last administered on 11/09/18at 13:33; Admin Dose 300 MG; Start 11/07/18 at 21:00 Pantoprazole (Protonix Tab) 40 mg DAILY@06 PO Last administered on 11/09/18at 06:43; Admin Dose 40 MG; Start 11/08/18 at 06:00 Docusate Sodium (Colace) 100 mg BID PO Last administered on 11/09/18at 09:12; Admin Dose 100 MG; Start 11/09/18 at 09:00 Polyethylene Glycol (Miralax) 17 gm DAILY PRN PO CONSTIPATION; Start 11/09/18 at 08:30 VTE Prophylaxis Risk score (from Nsg)>0 risk: 11 SCD applied (from Nsg): Yes Pharmacological prophylaxis: LMWH, other Lines/Catheters IV Catheter Type: Henderson in Place: No Assessment/Plan Hospital Course Subjective No acute issues,s/p surgery Objective Physical exam General: Patient is laying in bed and answers questions appropriately Mentation: Patient is alert and oriented 4, Head: Normocephalic atraumatic Eyes: EOMI, pupils reactive to light Neck: Supple, nontender, midline Respiratory: Clear to auscultation bilaterally Cardiovascular: regular rate, no obvious murmurs Gastrointestinal: non-tender to palpation, bowel sounds heard. Neurological: Moves all extremities spontaneously Skin: R foot bandaged/splinted, CDI Assessment and plan Right tib-fib fracture -Orthopedic surgery consulted, Dr. Rhodes -s/p ORIF with nail on 11/06/18 -PT/OT Hypertension -Treat as needed, resume home meds BPH -Monitor for now, continue Flomax Diabetes mellitus -Insulin sliding scale for now Disposition -Patient doing well, however hemoglobin has dropped slightly, will need to ensure no continuous bleed before [facility], repeat hgb is stable so we will continue Lovenox for now as patient will likely need Lovenox for a total of 6 weeks as this was a traumatic fracture. VAN RIDDLE Nov 09, 2018 14:41
--- NOTE | 2018-11-09 18:39 | CONS ---
Consult Date/Type/Reason Admit Date/Time Nov 05, 2018 at 10:18 Initial Consult Date 11/05/18 Type of Consultation: cv Requesting Provider: VAN RIDDLE Date/Time of Note DATE: 11/09/18 TIME: 18:39 Subjective Interventional cardiology follow-up progress note Subjective: Case discussed with staff Patient with no chest pain or pressure patient with no shortness of breath or palpitation s/p leg surgery 11/06 LESS R leg pain Objective: General: no acute distress HEENT: NC/AT. pupils are equal. round. NECK: NO JVD. no stridor. CV: RRR. systolic murmur; no gallop or rubs. PULM: no wheezing or rhonchi. GI: SOFT, NT, ND, no rebound or guarding Extremity: trace B/L LE edema. no clubbing. Right leg deformity noted in dressing neuro: awake and alert, OX3. Psych: calm and pleasant rectal: deferred : normal EKG done today at 9:00 showed normal sinus rhythm normal ECG Echocardiogram done today which was personally reviewed shows: Normal left ventricular systolic function. Normal left ventricular cavity size. Mild concentric left ventricular hypertrophy. Ejection fraction is visually estimated at 65 %. The left atrium is normal in size. Normal appearance of the mitral valve. Mild mitral annular calcification. Trace mitral regurgitation. No significant aortic stenosis or insufficiency. Aortic cusps appear mildly calcified. Normal appearance of the tricuspid valve. Unable to obtain RVSP due to minimal presence of tricuspid regurgitation. Objective Vitals Vital Signs Date Temp Pulse Resp B/P (MAP) Pulse Ox O2 O2 Flow FiO2 Time Delivery Rate 11/09/18 97.8 70 18 130/68 92 Room Air 14:25 (88) 11/06/18 3.0 22:52 Intake and Output 11/08/18 11/08/18 11/09/18 1515:00 23:00 07:00 IntakeIntake Total 400 ml 600 ml BalanceBalance 400 ml 600 ml Results/Medications Result Diagram: 11/09/18 1006 11/09/18 0445 Results 24 hrs Laboratory Tests Test 11/08/18 21:16 11/09/18 04:45 11/09/18 08:37 11/09/18 10:06 Bedside Glucose 126 106 White Blood Count 6.6 Red Blood Count 4.35 L Hemoglobin 13.5 L 13.5 L Hematocrit 40.5 L 40.6 L Mean Corpuscular 93.1 Volume Mean Corpuscular 31.0 Hemoglobin Mean Corpuscular 33.3 Hemoglobin Concent Red Cell 13.0 Distribution Width Platelet Count 194 Mean Platelet Volume 9.6 Immature 0.800 H Granulocytes % Neutrophils % 65.5 Lymphocytes % 17.2 Monocytes % 12.1 H Eosinophils % 3.8 Basophils % 0.6 Nucleated Red Blood 0.0 Cells % Immature 0.050 H Granulocytes # Neutrophils # 4.3 Lymphocytes # 1.1 Monocytes # 0.8 Eosinophils # 0.3 Basophils # 0.0 Nucleated Red Blood 0.0 Cells # Sodium Level 136 Potassium Level 3.6 Chloride Level 101 Carbon Dioxide Level 30 Anion Gap 5 Blood Urea Nitrogen 19 Creatinine 0.68 Est Glomerular Filtrat Rate mL/min Glucose Level 121 Calcium Level 8.6 Phosphorus Level 3.0 Magnesium Level 2.1 Test 11/09/18 12:49 11/09/18 18:07 Bedside Glucose 101 109 Home Meds Reported Medications Metformin Hcl (Metformin Hcl ER) 500 Mg Tab.er.24h, 1 TAB ORAL DAILY 11/05/18 Tamsulosin Hcl* (Tamsulosin Hcl*) 0.4 Mg Cap.er.24h, 1 CAP ORAL DAILY 11/05/18 Benazepril-Hydrochlorothiazide (Benazepril-Hydrochlorothiazide) 20-12.5 Mg Tablet, 1 TAB ORAL DAILY 11/05/18 Medications Current Medications IV Flush (NS 3 ml) 3 ml PER PROTOCOL IV ; Start 11/05/18 at 10:30 Ondansetron HCl (Zofran Inj) 4 mg Q6H PRN IV NAUSEA/VOMITING; Start 11/05/18 at 10:30 Acetaminophen (Tylenol Tab) 650 mg Q6H PRN PO .PAIN 1-3 OR TEMP; Start 11/05/18 at 10:30 Hydralazine HCl (Apresoline) 10 mg Q4H PRN IV sbp >160; Start 11/05/18 at 13:00 Diagnostic Test (Pha) (Accu-Chek) 1 ea 02 XX ; Start 11/06/18 at 02:00 Insulin Aspart (Novolog Insulin Pen) NOVOLOG *MILD* ALGORITHM WITH MEALS BEDTIME SC Last administered on 11/07/18at 08:54; Admin Dose 1 UNIT; Start 11/05/18 at 17:55 Miscellaneous Information 1 ea NOTE XX ; Start 11/05/18 at 13:30 Glucose (Glutose) 15 gm Q15M PRN PO DECREASED GLUCOSE; Start 11/05/18 at 13:30 Glucose (Glutose) 22.5 gm Q15M PRN PO DECREASED GLUCOSE; Start 11/05/18 at 13:30 Dextrose (D50w Syringe) 25 ml Q15M PRN IV DECREASED GLUCOSE; Start 11/05/18 at 13:30 Dextrose (D50w Syringe) 50 ml Q15M PRN IV DECREASED GLUCOSE; Start 11/05/18 at 13:30 Glucagon (Glucagen) 1 mg Q15M PRN IM DECREASED GLUCOSE; Start 11/05/18 at 13:30 Glucose (Glutose) 15 gm Q15M PRN BUCCAL DECREASED GLUCOSE; Start 11/05/18 at 13:30 Metoprolol Tartrate (Lopressor) 25 mg BID PO Last administered on 11/09/18at 09:13; Admin Dose 25 MG; Start 11/05/18 at 15:30 IV Flush (NS 3 ml) 3 ml PER PROTOCOL IV ; Start 11/06/18 at 21:00 Enoxaparin Sodium (Lovenox) 40 mg DAILY SC Last administered on 11/09/18at 09:16; Admin Dose 40 MG; Start 11/07/18 at 09:00 Morphine Sulfate (morphine) 3 mg Q3H PRN IV SEVERE PAIN LEVEL 7-10 Last administered on 11/08/18at 06:25; Admin Dose 3 MG; Start 11/06/18 at 21:00 Acetaminophen/ Hydrocodone Bitart ([place] (5/325)) 1 tab Q3H PRN PO MODERATE PAIN LEVEL 4-6; Start 11/06/18 at 21:00 Oxycodone/ Acetaminophen (Endocet (10/ 325)) 1 tab Q4H PRN PO MODERATE PAIN LEVEL 4-6 Last administered on 11/09/18at 06:44; Admin Dose 1 TAB; Start 11/07/18 at 15:00 Gabapentin (Neurontin) 300 mg TID PO Last administered on 11/09/18at 13:33; Admin Dose 300 MG; Start 11/07/18 at 21:00 Pantoprazole (Protonix Tab) 40 mg DAILY@06 PO Last administered on 11/09/18at 06:43; Admin Dose 40 MG; Start 11/08/18 at 06:00 Docusate Sodium (Colace) 100 mg BID PO Last administered on 11/09/18at 09:12; Admin Dose 100 MG; Start 11/09/18 at 09:00 Polyethylene Glycol (Miralax) 17 gm DAILY PRN PO CONSTIPATION; Start 11/09/18 at 08:30 Assessment/Plan Hospital Course (Demo Recall) Cardiovascular preop evaluation Tibial fracture Status post fall Hypertension Diabetes Recommendations Continue the patient on beta-dante Diabetic management as per internal medicine post op care and DVT prophylaxis as per IM /ortho no further cardiac recommendation at this point. We will follow-up as needed Thank you for his referral. NURY OSULLIVAN MD [facility] NURY OSULLIVAN MD Nov 09, 2018 18:39
[2018-11-09 20:30] VITALS: BP 144/74; PULSE 86; RESP 18
[2018-11-10] MEDS: ACCU-CHEK XX SCH (01:26)
[2018-11-10 02:33] VITALS: BP 144/62; PULSE 66; RESP 18
[2018-11-10] MEDS: PANTOPRAZOLE (EC) 40 MG TAB PO SCH (06:04)
[2018-11-10] MEDS: OXYCODONE/ACETAMINOPHEN (10/325) TAB PO PRN ×3 (06:05→16:10)
[2018-11-10 08:06] VITALS: BP 128/64; PULSE 69; RESP 18
[2018-11-10] MEDS: INSULIN ASPART [NOVOLOG] 3 ML PEN SC SCH ×3 (09:07→18:01)
[2018-11-10] MEDS: GABAPENTIN 300 MG CAP PO SCH ×2 (09:08→14:01)
[2018-11-10] MEDS: DOCUSATE SODIUM 100 MG CAP PO SCH (09:08)
[2018-11-10] MEDS: ENOXAPARIN 40 MG/0.4 ML SYG SC SCH (09:08)
[2018-11-10] MEDS: METOPROLOL 25 MG TAB PO SCH (09:08)
[2018-11-10] MEDS ORDERED: MAGNESIUM CITRATE 300 ML BTL PO ONE (13:00)
[2018-11-10 14:00] VITALS: BP 131/60; PULSE 70; RESP 18
--- NOTE | 2018-11-10 14:23 | DS ---
Date/Time of Note Date/Time of Note DATE: 11/10/18 TIME: 14:23 Discharge Summary Admission/Discharge Info Admit Date/Time Nov 05, 2018 at 10:18 Discharge Date/Time Patient Condition: Stable Hospital Course Patient is a male who suffered a mechanical fall and subsequent right tib-fib fracture who presented to [facility] for his return hospital for right leg pain. Patient was taken to surgery by Dr. Rhodes on November 06, 2018 and patient had an uneventful stay afterwards. Patient's vitals and blood work was monitored and patient is now safe to be discharged to a long term facility as his children live in a multistory home and he would likely need a few weeks of rehab before returning to his children. Patient will need Lovenox for subcu DVT prophylaxis for a total of 6 weeks. Patient needs to be continued on Lovenox at DVT prophylactic dose until December 19, 2018. Patient had his medications adjusted and is doing well. Discharge diagnosis Right tib-fib fracture, status post ORIF with nail on November 06, 2018 Hypertension BPH Diabetes mellitus Home Meds Reported Medications Metformin Hcl (Metformin Hcl ER) 500 Mg Tab.er.24h, 1 TAB ORAL DAILY 11/05/18 Tamsulosin Hcl* (Tamsulosin Hcl*) 0.4 Mg Cap.er.24h, 1 CAP ORAL DAILY 11/05/18 Benazepril-Hydrochlorothiazide (Benazepril-Hydrochlorothiazide) 20-12.5 Mg T ablet, 1 TAB ORAL DAILY 11/05/18 Primary Care Provider Nick Thomas Time spent on discharge: > 30 minutes Pending Labs Laboratory Tests Test 11/09/18 18:07 11/09/18 20:42 11/10/18 01:33 11/10/18 04:31 Bedside 109 194 104 Glucose mg/dL (70-220) mg/dL (70-220) mg/dL (70-220) White Blood 6.4 Count 10^3/ul (4.8-1 0.8) Red Blood 4.56 Count 10^6/ul (4.70- 6.10) Hemoglobin 14.3 g/dl (14.0-18. 0) Hematocrit 42.4 % (42.0-52.0) Mean 93.0 Corpuscular fl (82.0-101.0 Volume ) Mean 31.4 Corpuscular pg (29.0-33.0) Hemoglobin Mean 33.7 Corpuscular g/dl (32.0-37. Hemoglobin Conc 0) ent Red Cell 13.0 Distribution % (11.5-14.5) Width Platelet Count 236 10^3/UL (140-4 15) Mean Platelet 9.9 Volume fl (7.4-10.4) Immature 0.800 Granulocytes % % (0.001-0.429 ) Neutrophils % 65.4 % (39.0-77.0) Lymphocytes % 19.1 % (15.0-51.0) Monocytes % 9.8 % (0.0-11.0) Eosinophils % 4.4 % (0.0-7.0) Basophils % 0.5 % (0.0-2.0) Nucleated Red 0.0 Blood Cells % /100WBC (0.0-0 .0) Immature 0.050 Granulocytes # 10^3/ul (0.0-0 .031) Neutrophils # 4.2 10^3/ul (1.6-7 .5) Lymphocytes # 1.2 10^3/ul (0.8-2 .9) Monocytes # 0.6 10^3/ul (0.3-0 .9) Eosinophils # 0.3 10^3/ul (0.0-0 .5) Basophils # 0.0 10^3/ul (0.0-0 .1) Nucleated Red 0.0 Blood Cells # 10^3/ul (0.0-0 .0) Sodium Level 138 mmol/L (135-14 4) Potassium 3.9 Level mmol/L (3.5-5. 1) Chloride Level 103 mmol/L (97-110 ) Carbon Dioxide 28 Level mmol/L (21-31) Anion Gap 7 (5-13) Blood Urea 19 Nitrogen mg/dl (7-20) Creatinine 0.62 mg/dl (0.61-1. 24) Est Glomerular mL/min (>60) Filtrat Rate mL/min Glucose Level 107 mg/dl (70-220) Calcium Level 9.1 mg/dl (8.4-10. 2) Phosphorus 3.3 Level mg/dl (2.5-4.9 ) Magnesium 2.1 Level mg/dl (1.7-2.5 ) Test 11/10/18 09:05 11/10/18 13:11 Bedside 175 132 Glucose mg/dL (70-220) mg/dL (70-220) VAN RIDDLE Nov 10, 2018 14:23
[2018-11-10] MEDS ORDERED: METO-448 PO (14:24)
== END 2018-11-10 18:50 | DRG 494 ==
LOC: E/R 08:03 → MS1 10:18
PROVIDERS: ADMIT Internal Medicine; ATTEND Internal Medicine
PROC: 0QSG06Z Reposition Right Tibia with Intramedullary Internal Fixation Device, Open Approach (ICD-10-PCS; principal; 2018-11-06 18:30)
DX: S82.201A Unspecified fracture of shaft of right tibia, initial encounter for closed fracture (principal); S82.451A Displaced comminuted fracture of shaft of right fibula, initial encounter for closed fracture; W19.XXXA Unspecified fall, initial encounter; I10 Essential (primary) hypertension; E11.9 Type 2 diabetes mellitus without complications; N40.0 Benign prostatic hyperplasia without lower urinary tract symptoms; W01.0XXA Fall on same level from slipping, tripping and stumbling without subsequent striking against object, initial encounter; Y93.89 Activity, other specified; Y92.019 Unspecified place in single-family (private) house as the place of occurrence of the external cause; Z79.4 Long term (current) use of insulin
CPT/HCPCS: 36415; 71045; 73590; 80048; 80053; 81001; 82962; 83036; 83735; 84100; 84484; 85014; 85018; 85025; 85610; 85730; 86850; 86900; 86901; 93005; 93306; 96374; 96375; 97110; 97116; 97162; 97530; C1713; C9113; J0690; J1100; J1170; J1650; J1815; J2175; J2250; J2270; J2405; J2710; J2795; J3010; J3475; J7030; J7042